=== PATIENT | female | born 1965 | race Two or more races ===

== ENCOUNTER 2016-09-04 19:17 | Emergency (ER) | payer MEDICAID, OTHER ==
[~2016-09-04] VITALS: Ht 157.5 cm; Wt 54.4 kg
[~2016-09-04 19:17] MED LIST: CARI-277 PO; NOR7.5T OR; SULF1TAB60 PO; TRAM50TA2 PO
[2016-09-04 20:11] LABS: Urine RBC None Seen /hpf (0 - 4)
[2016-09-04 20:23] LABS: Urine Bilirubin Negative (Negative); Urine Blood Negative /uL (Negative); Urine Color Yellow (Yellow); Urine Glucose Normal (Normal); Urine Ketone Negative (Negative); Urine Nitrite Negative (Negative); Urine Squamous Epithelial Cell MOD /hpf (<5); Urine pH 7.5 (5.0-8.0)
[2016-09-04 20:39] LABS: Basophils # (auto) 0 uL; Basophils % (auto) 0.5 % (0.0-2.0); Eosinophils # (auto) 0.3 uL; Eosinophils % (auto) 3.7 % (0.0-7.0); Hematocrit 40.6 % (36.0-46.0); Hemoglobin 14.2 g/dL (12.2-16.2); Lymphocytes # (auto) 1.7 uL; Mean Corpuscular Hemoglobin 32.8 pg (28.0-32.0); Mean Corpuscular Hgb Conc. 34.8 g/dL (32.0-36.0); Mean Platelet Volume 7.6 fL (7.4-10.4); Monocytes # (auto) 0.7 uL; Monocytes % (auto) 10.7 % (0.0-12.0); Neutrophils # (auto) 4.2 uL; Neutrophils % (auto) 61.1 % (37.0-80.0); Platelet Count (auto) 352 10^3/uL (140-450); Red Cell Distribution Width 13.3 % (11.6-16.0); White Blood Cell 6.9 10^3/uL (4.4-10.8)
[2016-09-04 20:51] LABS: INR 0.94 (0.9-1.15); Prothrombin Time 10.1 sec (9.37-12.3)
[2016-09-04 21:04] LABS: Albumin 3.5 g/dL (3.4-5.0); BUN/Creatinine Ratio 16.7; Bilirubin, Total 0.7 mg/dL (0.2-1.0); Calcium 8.9 mg/dL (8.5-10.1); Potassium 3.1 mmol/L (3.5-5.1); Total Protein 7.7 g/dL (6.4-8.2)
[2016-09-05 00:05] VITALS: BP 143/76
[2016-09-05] MEDS ORDERED: guaiFENesin-COD 10 ML UD PO ONE (01:15)
[2016-09-05] MEDS ORDERED: POTASSIUM CHL 20 Meq TABLET PO ONE (01:15)
== END 2016-09-05 01:21 | disposition home or self-care (01) ==
LOC: ER 19:17
DX: J04.0 Acute laryngitis (principal); M32.9 Systemic lupus erythematosus, unspecified
CPT/HCPCS: 36415; 71020; 80053; 81001; 81025; 85025; 85610; 85730

== ENCOUNTER 2019-03-25 06:52 | Inpatient (IN) | payer MEDICAID ==
[~2019-03-25] VITALS: Ht 157.5 cm; Wt 56.6 kg
[2019-03-25 07:56] LABS: Basophils # (auto) 0.1 uL; Eosinophils # (auto) 0 uL; Eosinophils % (auto) 0.3 % (0.0-7.0); Hematocrit 36.2 % (36.0-46.0); Hemoglobin 12.7 g/dL (12.2-16.2); Lymphocytes # (auto) 0.7 uL; Lymphocytes % (auto) 9.3 % (10.0-50.0); Mean Corpuscular Hemoglobin 33.6 pg (28.0-32.0); Mean Corpuscular Hgb Conc. 34.9 g/dL (32.0-36.0); Mean Corpuscular Volume 96.1 fL (80.0-100.0); Monocytes # (auto) 0.7 uL; Monocytes % (auto) 9.5 % (0.0-12.0); Neutrophils # (auto) 5.8 uL; Neutrophils % (auto) 79.9 % (37.0-80.0); Nucleated Red Blood Cells % 0.1 %; Platelet Count (auto) 138 10^3/uL (140-450); Red Blood Cells 3.77 10^6/uL (4.0-5.20); Red Cell Distribution Width 14.6 % (11.8-14.3); White Blood Cell 7.3 10^3/uL (4.4-10.8)
[2019-03-25] MEDS ORDERED: SODIUM CHLORIDE 0.9% 1,000 ML IV ONE ×3 (07:58→14:15)
[2019-03-25] MEDS ORDERED: chlordiazePOXIDE HCL 5 MG CAP PO ONE (08:00)
[2019-03-25] MEDS ORDERED: THIAMINE 100mg/ml INJ (200mg/2ml VIAL) IV ONE ×2 (08:00→10:15)
[2019-03-25] MEDS ORDERED: PANTOPRAZOLE 80 MG in SODIUM CHL 0.9% 60 ML IV ONE (08:00)
[2019-03-25] MEDS ORDERED: ONDANSETRON HCL 4 MG/2 ML VIAL IV ONE (08:00)
[2019-03-25 08:07] LABS: INR 1.14 (0.9-1.15); Partial Thromboplastin Time 30.3 sec (23.64-32.05)
[2019-03-25 08:11] LABS: Albumin 2.6 g/dL (3.4-5.0); Calcium 7.7 mg/dL (8.5-10.1); Potassium 3.9 mmol/L (3.5-5.1)
[2019-03-25 08:14] LABS: Bilirubin, Total 2.1 mg/dL (0.2-1.0); Total Protein 8.6 g/dL (6.4-8.2)
[2019-03-25 08:30] LABS: Blood Alcohol < 3.0 mg/dL (0-5)
[2019-03-25 09:06] LABS: Urine Bacteria FEW /hpf (None Seen); Urine Blood Negative /uL (Negative); Urine Mucus FEW (None Seen); Urine Specific Gravity 1.026 (1.001-1.035); Urine WBC 33 /hpf (0 - 5)
[2019-03-25] MEDS ORDERED: MORPHINE SULF INJ 2 MG/ML SYRINGE 1ML IV PRN (10:15)
[2019-03-25] MEDS ORDERED: PROMETHAZINE HCL 25 MG/ML 1ML IV PRN (10:15)
[2019-03-25] MEDS ORDERED: cefTRIAXone 1GM/50ML D5W 50 ML IV ONE (10:15)
[2019-03-25] MEDS ORDERED: LORazepam 2MG/ML-1ML VIAL IV PRN (10:15)
[2019-03-25] MEDS ORDERED: NITROGLYCERIN 0.4 MG SL TAB SL PRN (10:15)
[2019-03-25] MEDS ORDERED: METOCLOPRAMIDE HCL 5MG/ml INJ 2ml VIAL IV ONE (11:00)
[2019-03-25] MEDS ORDERED: OCTREOTIDE ACETATE 100 MCG in SODIUM CHL 0.9% 50 ML IV ONE (11:00)
[2019-03-25] MEDS ORDERED: OCTREOTIDE ACETATE 500 MCG in SODIUM CHL 0.9% 99 ML IV SCH (11:00)
[2019-03-25 11:18] LABS: Amylase 36 U/L (25-115); Lipase 61 U/L (73-393)
[2019-03-25] MEDS ORDERED: phytonadione 10 MG in SODIUM CHL 0.9% 50 ML IV ONE (11:45)
[2019-03-25] MEDS: MORPHINE SULF INJ 2 MG/ML SYRINGE 1ML IV PRN (12:00)
[2019-03-25] MEDS: SODIUM CHLORIDE 0.9% 1,000 ML IV SCH ×2 (12:00→18:29)
[2019-03-25] MEDS ORDERED: LIDOCAINE VISCOUS 2% 15ML UD ONE (12:48)
[2019-03-25] MEDS ORDERED: SODIUM CHLORIDE LOCK 10 ML ONE (12:48)
[2019-03-25] MEDS ORDERED: diphenhdrAMINE HCL 50 MG/1 ML VL ONE (12:49)
[2019-03-25] MEDS ORDERED: fentaNYL CITRATE 100 MCG/2 ML VL ONE (12:50)
[2019-03-25] MEDS ORDERED: MIDAZOLAM HCL 5 MG/ML-1ML VIAL ONE (12:51)
[2019-03-25] MEDS: fentaNYL CITRATE 100 MCG/2 ML VL ONE ×2 (13:04→13:09)
[2019-03-25] MEDS: MIDAZOLAM HCL 5 MG/ML-1ML VIAL ONE ×2 (13:04→13:09)
[2019-03-25 13:06] LABS: Hematocrit 33.9 % (36.0-46.0); Hemoglobin 11.9 g/dL (12.2-16.2)
[2019-03-25] MEDS ORDERED: NOREPINEPHRINE 8 MG/250ML KIT 250 ML IV PRN (14:15)
[2019-03-25] MEDS: metroNIDAZOLE 500MG/100ML 100 ML IV SCH ×2 (14:19→22:04)
[2019-03-25 18:15] LABS: Hematocrit 32.6 % (36.0-46.0); Hemoglobin 11.2 g/dL (12.2-16.2)
[2019-03-25] MEDS ORDERED: ACETAMINOPHEN 325 MG TAB PO PRN (21:30)
[2019-03-25] MEDS ORDERED: PANTOPRAZOLE 40 MG/10 ML VIAL INJ IV SCH (22:00)
[2019-03-26 01:43] LABS: Hematocrit 28.3 % (36.0-46.0); Hemoglobin 9.9 g/dL (12.2-16.2)
[2019-03-26] MEDS: SODIUM CHLORIDE 0.9% 1,000 ML IV SCH ×3 (02:43→18:13)
[2019-03-26] MEDS: metroNIDAZOLE 500MG/100ML 100 ML IV SCH ×3 (06:19→22:26)
[2019-03-26 06:56] LABS: Basophils # (auto) 0 uL; Basophils % (auto) 0.6 % (0.0-2.0); Eosinophils # (auto) 0.1 uL; Hemoglobin 9.6 g/dL (12.2-16.2); Lymphocytes # (auto) 1.2 uL; Monocytes # (auto) 0.4 uL; Neutrophils # (auto) 1.9 uL; White Blood Cell 3.6 10^3/uL (4.4-10.8)
[2019-03-26 06:58] LABS: Eosinophils % (auto) 2.3 % (0.0-7.0); Hematocrit 26.8 % (36.0-46.0); Mean Corpuscular Hemoglobin 34.4 pg (28.0-32.0); Mean Corpuscular Hgb Conc. 35.7 g/dL (32.0-36.0); Mean Corpuscular Volume 96.4 fL (80.0-100.0); Monocytes % (auto) 11.8 % (0.0-12.0); Neutrophils % (auto) 52.3 % (37.0-80.0); Nucleated Red Blood Cells % 0.3 %; Platelet Count (auto) 97 10^3/uL (140-450); Red Blood Cells 2.78 10^6/uL (4.0-5.20); Red Cell Distribution Width 14.6 % (11.8-14.3)
[2019-03-26 07:25] LABS: Calcium 6.9 mg/dL (8.5-10.1); Potassium 3.5 mmol/L (3.5-5.1)
[2019-03-26 07:28] LABS: BUN/Creatinine Ratio 19.6; Bilirubin, Total 1.3 mg/dL (0.2-1.0); Total Protein 6.4 g/dL (6.4-8.2)
[2019-03-26] MEDS: cefTRIAXone 1GM/50ML D5W 50 ML IV SCH (09:11)
[2019-03-26] MEDS: THIAMINE 100mg/ml INJ (200mg/2ml VIAL) IV SCH (10:19)
[2019-03-26 11:30] VITALS: BP 108/65
--- NOTE | 2019-03-26 11:30 | NUR ---
Admit to [facility] admitted to [facility] via gurney on library monitor. Patient transferred to bed, [facility] Patient oriented to Suri merritt RN, unit, room, bed, and unit policies regarding patient care and visiting hours. All questions and concerns addressed, patient verbalized understanding. Patient awake and alert, no S/S of SOB/pain. Oxygen saturation 98% at room air. See interventions for complete assessment. Bed locked on low position, side rails up x2, bed alarms on at all times, call pizarro within reach, instructed to call for needed assistance.
[2019-03-26 12:00] VITALS: BP 114/62
[2019-03-26] MEDS: MORPHINE SULF INJ 2 MG/ML SYRINGE 1ML IV PRN ×2 (13:38→19:54)
--- NOTE | 2019-03-26 14:11 | NUR ---
Patient denies taking any medications at home. Patient refused to set up password for her medical information.
--- NOTE | 2019-03-26 14:15 | NUR ---
Dr Meadows at bedside, updated on patient's status. Patient seen and examined. Will carry out new orders.
[2019-03-26 16:00] VITALS: BP 118/65
[2019-03-26 20:00] VITALS: BP 117/65
[2019-03-26] MEDS: PANTOPRAZOLE 40 MG TAB PO SCH (22:26)
[2019-03-27] VITALS: BP 123/58
[2019-03-27] MEDS: SODIUM CHLORIDE 0.9% 1,000 ML IV SCH ×3 (03:35→12:32)
[2019-03-27] MEDS: MORPHINE SULF INJ 2 MG/ML SYRINGE 1ML IV PRN ×2 (03:37→09:27)
[2019-03-27 04:00] VITALS: BP 119/62
[2019-03-27] MEDS: metroNIDAZOLE 500MG/100ML 100 ML IV SCH (06:44)
--- NOTE | 2019-03-27 07:35 | NUR ---
SHIFT OPENING NOTE PATIENT AOX4, SELF TURN, MOVING ALL EXTREMITIES. REPORTS NO PAIN OR BLEEDING AT THIS TIME. ABDOMEN, ROUND, SOFT, AND NONTENDER, PLAN OF CARE DISCUSSED WITH PATIENT WITH ALL QUESTIONS AND CONCERNS ADDRESSED AT THIS TIME
[2019-03-27 08:00] VITALS: BP 126/60
[2019-03-27] MEDS ORDERED: POTASSIUM CHL 20MEQ/100ML 100 ML IV SCH (08:15)
[2019-03-27] MEDS: THIAMINE 100mg/ml INJ (200mg/2ml VIAL) IV SCH (09:27)
[2019-03-27] MEDS: PANTOPRAZOLE 40 MG TAB PO SCH (09:27)
[2019-03-27] MEDS: cefTRIAXone 1GM/50ML D5W 50 ML IV SCH (09:27)
--- NOTE | 2019-03-27 10:00 | NUR ---
PATIENT OUT OF BED STABLE ON FEET, AMBULATED TO RESTROOM
--- NOTE | 2019-03-27 10:46 | NUR ---
DR. AGEE AT BEDSIDE
--- NOTE | 2019-03-27 11:01 | NUR ---
FOLLOW UP [facility] PER PATIENT SHE WILL FOLLOW UP AT [facility] AFTER DISCHARGE
[2019-03-27 12:10] VITALS: BP 131/75
[2019-03-27 12:52] VITALS: BP 131/75
--- NOTE | 2019-03-27 14:13 | NUR ---
PATIENT DISCHARGED IV'S REMOVED WITH CATHETER INTACT, PRESSURE DRESSING APPLIED. PATIENT DISCHARGED WITH ALL BELONGINGS. ALL QUESTIONS AND CONCERNS ADDRESSED UPON DISCHARGE
== END 2019-03-27 14:10 | disposition home or self-care (01) | DRG 243 ==
LOC: ER 06:52 → OVERFLOW 06:53 → DOU IN ICU 11:12 → UNDODISIN 03-27 14:10
PROVIDERS: ADMIT Internal Medicine; ATTEND Internal Medicine
PROC: 0DJ08ZZ Inspection of Upper Intestinal Tract, Via Natural or Artificial Opening Endoscopic (ICD-10-PCS; principal; 2019-03-25 14:15)
DX: K20.9 Esophagitis, unspecified (principal); K76.6 Portal hypertension; K70.30 Alcoholic cirrhosis of liver without ascites; K70.9 Alcoholic liver disease, unspecified; B19.20 Unspecified viral hepatitis C without hepatic coma; N39.0 Urinary tract infection, site not specified; K31.89 Other diseases of stomach and duodenum; K22.8 Other specified diseases of esophagus; F10.10 Alcohol abuse, uncomplicated; Y90.9 Presence of alcohol in blood, level not specified; F12.90 Cannabis use, unspecified, uncomplicated; F15.90 Other stimulant use, unspecified, uncomplicated; I10 Essential (primary) hypertension; Z79.899 Other long term (current) drug therapy; Z80.3 Family history of malignant neoplasm of breast; Z82.49 Family history of ischemic heart disease and other diseases of the circulatory system; Z83.3 Family history of diabetes mellitus
CPT/HCPCS: 36415; 43235; 71045; 71046; 74176; 80053; 80320; 81001; 81025; 82150; 83690; 84484; 85014; 85018; 85025; 85610; 85730; 86850; 86900; 86901; 87081; 87086; 96365; 96375; 99291; C9113; G0378; J0696; J2250; J2405; J3430; J3490

== ENCOUNTER → 2019-11-13 | Emergency (ER) | payer MEDICAID ==
[~2019-11-13] VITALS: Ht 157.5 cm; Wt 49.9 kg
[2019-11-13 20:56] VITALS: BP 151/84
[2019-11-13 22:44] LABS: Basophils # (auto) 0.1 10 ^3/uL (0-0.2); Basophils % (auto) 1.3 % (0.0-2.0); Eosinophils # (auto) 0.1 10 ^3/uL (0-0.8); Eosinophils % (auto) 2.3 % (0.0-7.0); Hemoglobin 13.3 g/dL (12.2-16.2); Lymphocytes # (auto) 1.2 10 ^3/uL (0.4-5.4); Lymphocytes % (auto) 27.8 % (10.0-50.0); Mean Corpuscular Hemoglobin 27.6 pg (28.0-32.0); Mean Corpuscular Hgb Conc. 33.3 g/dL (32.0-36.0); Mean Corpuscular Volume 82.9 fL (80.0-100.0); Monocytes # (auto) 0.4 10 ^3/uL (0-1.3); Monocytes % (auto) 8.5 % (0.0-12.0); Neutrophils # (auto) 2.6 10 ^3/uL (1.6-8.6); Neutrophils % (auto) 60.1 % (37.0-80.0); Nucleated Red Blood Cells % 0.6 %; Platelet Count (auto) 80 10^3/uL (140-450); Red Blood Cells 4.83 10^6/uL (4.0-5.20); White Blood Cell 4.4 10^3/uL (4.4-10.8)
[2019-11-13 22:46] LABS: Urine Bacteria FEW /hpf (None Seen); Urine Blood Negative /uL (Negative); Urine Mucus FEW (None Seen); Urine Specific Gravity 1.012 (1.001-1.035); Urine WBC 31 /hpf (0 - 5); Urine WBC Clumps PRESENT /hpf (None Seen)
[2019-11-13 22:47] LABS: Amphetamine Screen, Urine NEGATIVE (NEGATIVE); Barbiturate Scree,Urine NEGATIVE (NEGATIVE); Benzodiazephine Screen, Urine NEGATIVE (NEGATIVE); Cannabinoid Screen, Urine NEGATIVE (NEGATIVE); Cocaine Screen, Urine NEGATIVE (NEGATIVE); Opiate Scree,Urine NEGATIVE (NEGATIVE); Phencyclidine Screen, Urine NEGATIVE (NEGATIVE)
[2019-11-13 23:00] LABS: INR 1.23 (0.9-1.15); Partial Thromboplastin Time 29.5 sec (23.64-32.05)
[2019-11-13 23:04] LABS: Albumin 3.1 g/dL (3.4-5.0); Amylase 80 U/L (25-115); Anion Gap 6 (5-15); BUN/Creatinine Ratio 14.8; Blood Urea Nitrogen 8 mg/dL (7-18); Calcium 8.1 mg/dL (8.5-10.1); Carbon Dioxide 26 mmol/L (21-32); Chloride 111 mmol/L (98-107); GFR African American 152 mL/min; GFR Non-African American 126 mL/min; Glucose 101 mg/dL (74-106); Lipase 204 U/L (73-393); Magnesium 2.3 mg/dL (1.6-2.6); Potassium 3.5 mmol/L (3.5-5.1); Sodium 143 mmol/L (136-145)
[2019-11-13 23:06] LABS: Alanine Aminotransferase 81 U/L (13-56); Alkaline Phosphatase 146 U/L (45-117); Aspartate Aminotransferase 199 U/L (15-37); Bilirubin, Total 1.4 mg/dL (0.2-1.0); Total Protein 8.9 g/dL (6.4-8.2)
== END | disposition home or self-care (01) ==
LOC: ER 20:49
DX: R10.9 Unspecified abdominal pain (principal); Z53.21 Procedure and treatment not carried out due to patient leaving prior to being seen by health care provider
CPT/HCPCS: 36415; 71046; 74176; 80053; 80307; 80320; 81001; 82140; 82150; 83690; 83735; 84484; 85025; 85610; 85730

== ENCOUNTER 2021-11-09 12:07 | Emergency (ER) | payer MEDICAID ==
[~2021-11-09] VITALS: Ht 157.5 cm; Wt 59.0 kg
[2021-11-09 13:28] LABS: Albumin 2.7 g/dL (3.4-5.0); Potassium 3.6 mmol/L (3.5-5.1)
[2021-11-09 13:31] LABS: BUN/Creatinine Ratio 35.1; Bilirubin, Total 1.5 mg/dL (0.2-1.0); Total Protein 7.6 g/dL (6.4-8.2)
[2021-11-09 13:41] LABS: Basophils # (auto) 0 10 ^3/uL (0-0.2); Basophils % (auto) 0.6 % (0.0-2.0); Eosinophils # (auto) 0.2 10 ^3/uL (0-0.8); Hematocrit 34.7 % (36.0-46.0); Hemoglobin 11.2 g/dL (12.2-16.2); Lymphocytes # (auto) 0.7 10 ^3/uL (0.4-5.4); Lymphocytes % (auto) 30.3 % (10.0-50.0); Mean Corpuscular Hemoglobin 27.8 pg (28.0-32.0); Mean Corpuscular Hgb Conc. 32.3 g/dL (32.0-36.0); Mean Corpuscular Volume 85.9 fL (80.0-100.0); Monocytes # (auto) 0.3 10 ^3/uL (0-1.3); Monocytes % (auto) 11.9 % (0.0-12.0); Neutrophils # (auto) 1.1 10 ^3/uL (1.6-8.6); Neutrophils % (auto) 50.2 % (37.0-80.0); Nucleated Red Blood Cells % 0.6 %; Red Blood Cells 4.04 10^6/uL (4.0-5.20); Red Cell Distribution Width 15.6 % (11.8-14.3); White Blood Cell 2.2 10^3/uL (4.4-10.8)
[2021-11-09 14:11] VITALS: BP 147/61
[2021-11-09 16:07] LABS: Urine Bacteria FEW /hpf (None Seen); Urine Blood Negative /uL (Negative); Urine Mucus FEW (None Seen); Urine Specific Gravity 1.017 (1.001-1.035); Urine WBC 3 /hpf (0 - 5)
[2021-11-09] MEDS ORDERED: HYDROcodone-ACET 5/325MG TAB PO ONE (16:30)
[2021-11-09] MEDS ORDERED: ONDANSETRON HCL 4 MG/2 ML VIAL IV ONE ×2 (16:30→19:15)
[2021-11-09] MEDS ORDERED: METOCLOPRAMIDE HCL 5MG/ml INJ 2ml VIAL IV ONE (18:45)
[2021-11-09] MEDS ORDERED: LACTATED RINGER'S 1,000 ML IV ONE (19:15)
[2021-11-09] MEDS ORDERED: chlordiazePOXIDE HCL 5 MG CAP PO ONE (19:15)
[2021-11-09] MEDS ORDERED: LORazepam 2MG/ML-1ML VIAL IV ONE (19:15)
[2021-11-09] MEDS ORDERED: ONDA-144 PO (19:23)
== END 2021-11-09 19:22 | disposition left against medical advice (07) ==
LOC: ER 12:07
DX: E86.0 Dehydration (principal); N18.9 Chronic kidney disease, unspecified; Z79.899 Other long term (current) drug therapy
CPT/HCPCS: 36415; 74176; 80053; 81001; 81025; 82140; 84484; 84702; 85025; 93005; 96374; 99285; J2405

== ENCOUNTER 2021-12-16 07:46 | Emergency (ER) | payer MEDICAID ==
[~2021-12-16] VITALS: Ht 167.6 cm; Wt 63.0 kg
[~2021-12-16 07:46] MED LIST changes: +ONDA-144 PO
[2021-12-16 10:13] LABS: Albumin 2.4 g/dL (3.4-5.0); Calcium 7.5 mg/dL (8.5-10.1)
[2021-12-16 10:14] LABS: Hemoglobin 12.1 g/dL (12.2-16.2); White Blood Cell 3.1 10^3/uL (4.4-10.8)
[2021-12-16 10:16] LABS: BUN/Creatinine Ratio 22.2; Bilirubin, Total 2.1 mg/dL (0.2-1.0); Mean Corpuscular Hgb Conc. 32.8 g/dL (32.0-36.0); Mean Corpuscular Volume 82.2 fL (80.0-100.0); Red Cell Distribution Width 18.2 % (11.8-14.3); Total Protein 7.2 g/dL (6.4-8.2)
[2021-12-16 10:18] LABS: Basophils % (manual) 0 (0.0-2.0); Blast Cells 0; Eosinophils % (manual) 0 (0-7); Metamyelocytes % 0; Myelocytes % 0; Promyelocytes % 0; Reactive Lymphocytes 0
[2021-12-16 10:19] LABS: Potassium 2.9 mmol/L (3.5-5.1)
[2021-12-16] MEDS ORDERED: POTASSIUM EFFERVESENT TAB 25 MEQ PO ONE (10:30)
[2021-12-16] MEDS ORDERED: SODIUM CHLORIDE 0.9% 1,000 ML IV ONE (10:30)
[2021-12-16] MEDS ORDERED: ONDANSETRON HCL 4 MG/2 ML VIAL ONE (10:43)
[2021-12-16] MEDS ORDERED: THIAMINE 100mg/ml INJ (200mg/2ml VIAL) IV ONE (11:00)
[2021-12-16] MEDS ORDERED: ONDANSETRON HCL 4 MG/2 ML VIAL IV ONE (11:00)
[2021-12-16 11:39] LABS: Urine Bacteria FEW /hpf (None Seen); Urine Blood 2+ /uL (Negative); Urine Specific Gravity 1.013 (1.001-1.035); Urine WBC 273 /hpf (0 - 5)
[2021-12-16] MEDS ORDERED: NITR-87 PO (11:54)
[2021-12-16 12:16] VITALS: BP 133/64
[2021-12-16 13:13] LABS: Band Neutrophils % (manual) 9; Lymphocytes % (manual) 7 (10.0-50.0); Monocytes % (manual) 16 (0-12)
== END 2021-12-16 12:54 | disposition home or self-care (01) ==
LOC: ER 07:46 → EDBD 07:46 → ER 12:54
DX: R55 Syncope and collapse (principal); N39.0 Urinary tract infection, site not specified; K70.9 Alcoholic liver disease, unspecified; E43 Unspecified severe protein-calorie malnutrition; N18.9 Chronic kidney disease, unspecified; Z68.22 Body mass index [BMI] 22.0-22.9, adult
CPT/HCPCS: 36415; 70450; 72125; 80053; 81001; 85007; 85027; 93005; 96361; 96374; 96375; 99285; J2405; J3411; J7030

== ENCOUNTER 2022-01-22 14:36 | Emergency (ER) | payer MEDICAID ==
[~2022-01-22] VITALS: Ht 157.5 cm; Wt 54.0 kg
[~2022-01-22 14:36] MED LIST changes: +NITR-87 PO
[2022-01-22 15:43] LABS: Urine Bacteria FEW /hpf (None Seen); Urine Blood Negative /uL (Negative); Urine Mucus FEW (None Seen); Urine Specific Gravity 1.022 (1.001-1.035); Urine WBC 17 /hpf (0 - 5)
[2022-01-22 15:45] LABS: Basophils # (auto) 0 10 ^3/uL (0-0.2); Basophils % (auto) 0.6 % (0.0-2.0); Eosinophils # (auto) 0.1 10 ^3/uL (0-0.8); Eosinophils % (auto) 3.3 % (0.0-7.0); Hematocrit 39.1 % (36.0-46.0); Hemoglobin 12.8 g/dL (12.2-16.2); Lymphocytes # (auto) 0.6 10 ^3/uL (0.4-5.4); Lymphocytes % (auto) 19.6 % (10.0-50.0); Mean Corpuscular Hemoglobin 28.4 pg (28.0-32.0); Mean Corpuscular Hgb Conc. 32.8 g/dL (32.0-36.0); Mean Corpuscular Volume 86.4 fL (80.0-100.0); Monocytes # (auto) 0.4 10 ^3/uL (0-1.3); Monocytes % (auto) 11.7 % (0.0-12.0); Neutrophils % (auto) 64.8 % (37.0-80.0); Nucleated Red Blood Cells % 0.3 %; Red Blood Cells 4.52 10^6/uL (4.0-5.20); Red Cell Distribution Width 19.9 % (11.8-14.3)
[2022-01-22 15:57] LABS: Albumin 3.3 g/dL (3.4-5.0); BUN/Creatinine Ratio 32.6; Calcium 8.6 mg/dL (8.5-10.1); Potassium 3.7 mmol/L (3.5-5.1)
[2022-01-22 16:00] LABS: Bilirubin, Total 2.6 mg/dL (0.2-1.0)
[2022-01-22] MEDS ORDERED: cefTRIAXone 1GM/50ML D5W 50 ML IV ONE (17:00)
[2022-01-22] MEDS ORDERED: THIA100T10 PO (17:41)
[2022-01-22] MEDS ORDERED: CIPR-173 PO (17:41)
[2022-01-22] MEDS ORDERED: FOLITAB22 PO (17:41)
[2022-01-22] MEDS ORDERED: PANT1INJ3 IV (17:41)
[2022-01-22] MEDS ORDERED: METO-281 PO (17:41)
[2022-01-22 19:56] VITALS: BP 136/90
== END 2022-01-22 20:29 | disposition home or self-care (01) ==
LOC: ER 14:36
DX: K29.20 Alcoholic gastritis without bleeding (principal); N39.0 Urinary tract infection, site not specified; E46 Unspecified protein-calorie malnutrition; N18.9 Chronic kidney disease, unspecified; Z68.21 Body mass index [BMI] 21.0-21.9, adult; Z79.2 Long term (current) use of antibiotics; Z79.899 Other long term (current) drug therapy
CPT/HCPCS: 36415; 80053; 81001; 85025; 96365; 99284; J0696

== ENCOUNTER 2022-03-25 07:39 | Emergency (ER) | payer MEDICAID ==
[~2022-03-25] VITALS: Ht 157.5 cm; Wt 56.2 kg
[~2022-03-25 07:39] MED LIST changes: +CIPR-173 PO; +FOLITAB22 PO; +METO-281 PO; +PANT1INJ3 IV; +THIA100T10 PO
[2022-03-25 08:12] VITALS: BP 173/88
[2022-03-25 08:51] LABS: Basophils # (auto) 0 10 ^3/uL (0-0.2); Eosinophils # (auto) 0 10 ^3/uL (0-0.8); Lymphocytes # (auto) 0.3 10 ^3/uL (0.4-5.4); Lymphocytes % (auto) 11.3 % (10.0-50.0); Mean Corpuscular Volume 88.2 fL (80.0-100.0); Monocytes # (auto) 0.2 10 ^3/uL (0-1.3); White Blood Cell 2.5 10^3/uL (4.4-10.8)
[2022-03-25 08:53] LABS: Basophils % (auto) 0.5 % (0.0-2.0); Hematocrit 38.2 % (36.0-46.0); Hemoglobin 13.1 g/dL (12.2-16.2); Mean Corpuscular Hemoglobin 30.4 pg (28.0-32.0); Mean Corpuscular Hgb Conc. 34.4 g/dL (32.0-36.0); Monocytes % (auto) 8.4 % (0.0-12.0); Neutrophils # (auto) 1.9 10 ^3/uL (1.6-8.6); Neutrophils % (auto) 78.8 % (37.0-80.0); Nucleated Red Blood Cells % 0.3 %; Red Blood Cells 4.33 10^6/uL (4.0-5.20); Red Cell Distribution Width 15.3 % (11.8-14.3)
[2022-03-25] MEDS ORDERED: LACTATED RINGER'S 1,000 ML IV ONE (09:00)
[2022-03-25] MEDS ORDERED: LIDOCAINE VISCOUS 2% 15ML UD PO ONE (09:00)
[2022-03-25] MEDS ORDERED: FAMOTIDINE (10MG/ML) 2ML VL IV ONE (09:00)
[2022-03-25] MEDS ORDERED: ALUM & MAG HYDROX-SIMETH LIQ(MAALOX) 30 ML PO ONE (09:00)
[2022-03-25] MEDS ORDERED: ONDANSETRON HCL 4 MG/2 ML VIAL IV ONE (09:00)
[2022-03-25 09:05] LABS: Albumin 3.2 g/dL (3.4-5.0); BUN/Creatinine Ratio 36.6; Calcium 8.4 mg/dL (8.5-10.1); Potassium 3.7 mmol/L (3.5-5.1); Total Protein 7.9 g/dL (6.4-8.2)
[2022-03-25 09:24] LABS: Urine Bacteria FEW /hpf (None Seen); Urine Blood Negative /uL (Negative); Urine Mucus FEW (None Seen); Urine Specific Gravity 1.017 (1.001-1.035); Urine WBC 3 /hpf (0 - 5)
== END 2022-03-25 17:11 | disposition home or self-care (01) ==
LOC: ER 07:39
DX: K29.20 Alcoholic gastritis without bleeding (principal); N18.9 Chronic kidney disease, unspecified; Z90.49 Acquired absence of other specified parts of digestive tract; Z79.899 Other long term (current) drug therapy; Z79.2 Long term (current) use of antibiotics
CPT/HCPCS: 36415; 80053; 81001; 85025; 96361; 96374; 96375; 99284; J2405; J3490; J7030

== ENCOUNTER 2022-03-27 16:50 | Emergency (ER) | payer MEDICAID ==
[~2022-03-27] VITALS: Ht 157.5 cm; Wt 63.0 kg
[2022-03-27 17:12] VITALS: BP 129/78
[2022-03-27] MEDS ORDERED: ONDANSETRON ODT 4 MG TAB PO ONE (17:15)
[2022-03-27] MEDS ORDERED: SODIUM CHLORIDE 0.9% 1,000 ML IV ONE (17:15)
== END 2022-03-27 21:56 | disposition left against medical advice (07) ==
LOC: ER 16:50 → EDBD 16:50 → ER 21:56
DX: R10.9 Unspecified abdominal pain (principal); R10.10 Upper abdominal pain, unspecified; Z53.21 Procedure and treatment not carried out due to patient leaving prior to being seen by health care provider

== ENCOUNTER 2022-05-21 23:03 | Inpatient (IN) | payer MEDICAID ==
[~2022-05-21] VITALS: Ht 157.5 cm; Wt 62.7 kg
[2022-05-21 23:29] VITALS: BP 138/68
[2022-05-22 00:28] LABS: Basophils # (auto) 0 10 ^3/uL (0-0.2); Eosinophils # (auto) 0.1 10 ^3/uL (0-0.8); Hemoglobin 13.5 g/dL (12.2-16.2); Monocytes # (auto) 0.3 10 ^3/uL (0-1.3); Neutrophils # (auto) 1.4 10 ^3/uL (1.6-8.6); Neutrophils % (auto) 50.1 % (37.0-80.0); Red Cell Distribution Width 16.4 % (11.8-14.3)
[2022-05-22 00:31] LABS: Basophils % (auto) 0.5 % (0.0-2.0); Eosinophils % (auto) 2.8 % (0.0-7.0); Hematocrit 39.8 % (36.0-46.0); Lymphocytes % (auto) 37.2 % (10.0-50.0); Mean Corpuscular Hemoglobin 29.8 pg (28.0-32.0); Mean Corpuscular Volume 87.7 fL (80.0-100.0); Monocytes % (auto) 9.4 % (0.0-12.0); Nucleated Red Blood Cells % 0.4 %; Red Blood Cells 4.54 10^6/uL (4.0-5.20); White Blood Cell 2.7 10^3/uL (4.4-10.8)
[2022-05-22 00:42] LABS: INR 1.4 (0.9-1.15)
[2022-05-22 00:46] LABS: Albumin 2.7 g/dL (3.4-5.0); Potassium 3.4 mmol/L (3.5-5.1)
[2022-05-22 00:48] LABS: BUN/Creatinine Ratio 21.1
[2022-05-22 00:51] LABS: Bilirubin, Total 3.5 mg/dL (0.2-1.0); Total Protein 7.5 g/dL (6.4-8.2)
[2022-05-22] MEDS ORDERED: LORazepam 0.5 MG TAB PO PRN (06:00)
[2022-05-22] MEDS ORDERED: DOCUSATE SOD 100 MG CAP PO PRN (06:00)
[2022-05-22] MEDS ORDERED: TEMAZEPAM 15 MG CAP PO PRN (06:00)
[2022-05-22] MEDS ORDERED: LACTULOSE 20Gm/30ML SOLN PO SCH (06:00)
[2022-05-22] MEDS ORDERED: ACETAMINOPHEN 325 MG TAB PO PRN (06:00)
[2022-05-22] MEDS ORDERED: HYDROcodone-ACET 5/325MG TAB PO PRN (06:00)
[2022-05-22] MEDS ORDERED: MAALOX PLUS or MAALOX 30 ML PO PRN (06:00)
[2022-05-22] MEDS ORDERED: MORPHINE SULFATE INJ 2 MG/ml SYRG IV PRN (06:00)
[2022-05-22] MEDS ORDERED: SODIUM CHLORIDE 0.9% 1,000 ML IV SCH (06:00)
[2022-05-22] MEDS ORDERED: ONDANSETRON HCL 4 MG/2 ML VIAL IV PRN (06:00)
[2022-05-22] MEDS ORDERED: HYDROmorphone HCL 2 MG/ML VL/or syr IV PRN (06:00)
[2022-05-22] MEDS ORDERED: cefTRIAXone 1GM/50ML D5W 50 ML IV SCH (07:00)
== END 2022-05-22 08:54 | disposition left against medical advice (07) ==
LOC: ER 23:03 → OVERFLOW 05-22 05:56
PROVIDERS: ADMIT Hospitalist; ATTEND Student in an Organized Health Care Education/Training Program
DX: K76.82 Hepatic encephalopathy (principal); K74.60 Unspecified cirrhosis of liver; Z53.29 Procedure and treatment not carried out because of patient's decision for other reasons; Z79.899 Other long term (current) drug therapy; Z85.05 Personal history of malignant neoplasm of liver; Z90.49 Acquired absence of other specified parts of digestive tract
CPT/HCPCS: 36415; 71045; 74176; 80053; 82140; 83690; 83880; 85025; 85610; G0378

== ENCOUNTER 2022-06-02 04:30 | Emergency (ER) | payer MEDICAID ==
[~2022-06-02] VITALS: Ht 157.5 cm; Wt 59.0 kg
[2022-06-02 04:53] VITALS: BP 135/68
[2022-06-02 06:03] LABS: Basophils # (auto) 0 10 ^3/uL (0-0.2); Eosinophils # (auto) 0 10 ^3/uL (0-0.8); Eosinophils % (auto) 0.4 % (0.0-7.0); Lymphocytes # (auto) 0.8 10 ^3/uL (0.4-5.4); Lymphocytes % (auto) 21.5 % (10.0-50.0); Monocytes # (auto) 0.3 10 ^3/uL (0-1.3); Neutrophils # (auto) 2.7 10 ^3/uL (1.6-8.6); White Blood Cell 3.8 10^3/uL (4.4-10.8)
[2022-06-02 06:07] LABS: Basophils % (auto) 0.5 % (0.0-2.0); Hematocrit 42.9 % (36.0-46.0); Hemoglobin 14.7 g/dL (12.2-16.2); Mean Corpuscular Hemoglobin 30.5 pg (28.0-32.0); Mean Corpuscular Hgb Conc. 34.3 g/dL (32.0-36.0); Monocytes % (auto) 7.2 % (0.0-12.0); Neutrophils % (auto) 70.4 % (37.0-80.0); Nucleated Red Blood Cells % 0.3 %; Red Blood Cells 4.82 10^6/uL (4.0-5.20); Red Cell Distribution Width 17.9 % (11.8-14.3)
[2022-06-02 06:20] LABS: INR 1.46 (0.9-1.15); Partial Thromboplastin Time 35.6 sec (24.6-33.4)
[2022-06-02 06:22] LABS: Albumin 2.7 g/dL (3.4-5.0); BUN/Creatinine Ratio 30.6; Calcium 7.3 mg/dL (8.5-10.1); Magnesium 2.1 mg/dL (1.6-2.6); Potassium 3.7 mmol/L (3.5-5.1)
[2022-06-02 06:25] LABS: Bilirubin, Total 14.4 mg/dL (0.2-1.0); Total Protein 7.4 g/dL (6.4-8.2)
== END 2022-06-02 07:25 | disposition left against medical advice (07) ==
LOC: EDBD 04:30 → EDSEX 04:30 → ER 04:33
DX: R06.02 Shortness of breath (principal); R18.8 Other ascites; K59.00 Constipation, unspecified; R07.89 Other chest pain; Z85.05 Personal history of malignant neoplasm of liver; Z53.21 Procedure and treatment not carried out due to patient leaving prior to being seen by health care provider
CPT/HCPCS: 36415; 71045; 80053; 83735; 83880; 84484; 85025; 85610; 85730

== ENCOUNTER 2022-06-09 14:17 | Emergency (ER) | payer MEDICAID ==
[~2022-06-09] VITALS: Ht 157.5 cm; Wt 56.6 kg
[2022-06-09 14:17] VITALS: BP 136/73
[2022-06-09 15:13] LABS: Eosinophils # (auto) 0.1 10 ^3/uL (0-0.8); Lymphocytes # (auto) 0.5 10 ^3/uL (0.4-5.4); Monocytes # (auto) 0.4 10 ^3/uL (0-1.3)
[2022-06-09 15:15] LABS: Basophils # (auto) 0.1 10 ^3/uL (0-0.2); Eosinophils % (auto) 2.6 % (0.0-7.0); Hematocrit 44.2 % (36.0-46.0); Hemoglobin 15.1 g/dL (12.2-16.2); Lymphocytes % (auto) 15.7 % (10.0-50.0); Mean Corpuscular Hemoglobin 32.2 pg (28.0-32.0); Mean Corpuscular Hgb Conc. 34.2 g/dL (32.0-36.0); Mean Corpuscular Volume 94.2 fL (80.0-100.0); Monocytes % (auto) 11.3 % (0.0-12.0); Neutrophils # (auto) 2.2 10 ^3/uL (1.6-8.6); Neutrophils % (auto) 68.4 % (37.0-80.0); White Blood Cell 3.2 10^3/uL (4.4-10.8)
[2022-06-09 15:19] LABS: Red Cell Distribution Width 21.9 % (11.8-14.3)
[2022-06-09 15:30] LABS: INR 1.7 (0.9-1.15); Partial Thromboplastin Time 46.5 sec (24.6-33.4)
[2022-06-09 15:31] LABS: BUN/Creatinine Ratio 9.3; Calcium 7.2 mg/dL (8.5-10.1); Potassium 3.6 mmol/L (3.5-5.1)
[2022-06-09 15:43] LABS: Bilirubin, Total 23.3 mg/dL (0.2-1.0); Total Protein 6.7 g/dL (6.4-8.2)
[2022-06-09] MEDS ORDERED: HYDROmorphone HCL 2 MG/ML VL/or syr IV ONE (21:15)
[2022-06-09 22:04] LABS: Urine Bacteria MANY /hpf (None Seen); Urine Blood Negative /uL (Negative); Urine Mucus MANY (None Seen); Urine Specific Gravity 1.019 (1.001-1.035); Urine WBC 10 /hpf (0 - 5)
[2022-06-09 23:49] LABS: Amphetamine Screen, Urine NEGATIVE (NEGATIVE); Barbiturate Scree,Urine NEGATIVE (NEGATIVE); Benzodiazephine Screen, Urine NEGATIVE (NEGATIVE); Cannabinoid Screen, Urine NEGATIVE (NEGATIVE); Cocaine Screen, Urine NEGATIVE (NEGATIVE); Opiate Scree,Urine NEGATIVE (NEGATIVE); Phencyclidine Screen, Urine NEGATIVE (NEGATIVE)
== END 2022-06-10 00:23 | disposition left against medical advice (07) ==
LOC: ER 14:17
DX: K74.60 Unspecified cirrhosis of liver (principal); R18.8 Other ascites; J90 Pleural effusion, not elsewhere classified; N39.0 Urinary tract infection, site not specified; F10.90 Alcohol use, unspecified, uncomplicated; Z90.49 Acquired absence of other specified parts of digestive tract
CPT/HCPCS: 36415; 71045; 74176; 80053; 80307; 81001; 84484; 85025; 85610; 85730; 93005

== ENCOUNTER 2022-09-14 02:13 | Inpatient (IN) | payer OTHER ==
[~2022-09-14] VITALS: Ht 157.5 cm; Wt 57.1 kg
[2022-09-14] MEDS ORDERED: MORPHINE SULFATE 4 MG/ML SYR/VIAL IV ONE (02:45)
[2022-09-14 03:22] LABS: Nucleated Red Blood Cells % 0.1 %
[2022-09-14 03:25] LABS: Basophils # (auto) 0 10 ^3/uL (0-0.2); Basophils % (auto) 0.9 % (0.0-2.0); Eosinophils # (auto) 0.1 10 ^3/uL (0-0.8); Eosinophils % (auto) 4.5 % (0.0-7.0); Hematocrit 28.2 % (36.0-46.0); Hemoglobin 9.8 g/dL (12.2-16.2); Lymphocytes # (auto) 0.8 10 ^3/uL (0.4-5.4); Mean Corpuscular Hemoglobin 37.3 pg (28.0-32.0); Mean Corpuscular Hgb Conc. 34.9 g/dL (32.0-36.0); Monocytes # (auto) 0.3 10 ^3/uL (0-1.3); Monocytes % (auto) 11.5 % (0.0-12.0); Neutrophils # (auto) 1.3 10 ^3/uL (1.6-8.6); Neutrophils % (auto) 51.1 % (37.0-80.0); Red Blood Cells 2.64 10^6/uL (4.0-5.20); White Blood Cell 2.6 10^3/uL (4.4-10.8)
[2022-09-14] MEDS ORDERED: HYDROmorphone HCL 2 MG/ML VL/or syr IV ONE (03:30)
[2022-09-14 03:35] LABS: INR 1.9 (0.9-1.15)
[2022-09-14 03:37] LABS: Albumin 1.6 g/dL (3.4-5.0); BUN/Creatinine Ratio 22.7 (10.0-20.0); Calcium 7.7 mg/dL (8.5-10.1)
[2022-09-14 03:40] LABS: Bilirubin, Total 7.3 mg/dL (0.2-1.0); Total Protein 6.3 g/dL (6.4-8.2)
[2022-09-14] MEDS ORDERED: cefTRIAXone SOD 1,000 MG VL IV ONE (04:00)
[2022-09-14 04:03] LABS: Potassium 2.9 mmol/L (3.5-5.1)
[2022-09-14 04:09] LABS: Red Cell Distribution Width 23.8 % (11.8-14.3)
[2022-09-14] MEDS ORDERED: POTASSIUM CHL 20 Meq TABLET PO ONE (04:15)
[2022-09-14] MEDS ORDERED: LACTULOSE 20Gm/30ML SOLN PO ONE (04:30)
[2022-09-14] MEDS ORDERED: MORPHINE SULFATE INJ 2 MG/ml SYRG IV PRN (05:15)
[2022-09-14] MEDS ORDERED: NITROGLYCERIN 0.4 MG SL TAB SL PRN (05:15)
[2022-09-14] MEDS ORDERED: DOCUSATE SOD 100 MG CAP PO PRN (05:15)
[2022-09-14] MEDS ORDERED: IBUPROFEN 400 MG TAB PO PRN (05:15)
[2022-09-14] MEDS: LACTULOSE 20Gm/30ML SOLN PO SCH ×5 (05:43→22:00)
[2022-09-14] MEDS: SODIUM CHLORIDE 0.9% 1,000 ML IV SCH ×2 (05:43→21:55)
[2022-09-14] MEDS: ALBUMIN 25% 100 ML IV SCH ×3 (05:44→20:56)
[2022-09-14 06:06] LABS: Urine Bacteria FEW /hpf (None Seen); Urine Blood Negative /uL (Negative); Urine Hyaline Cast FEW /lpf (0 - 2); Urine Mucus FEW (None Seen); Urine Specific Gravity 1.021 (1.001-1.035); Urine WBC 5 /hpf (0 - 5)
[2022-09-14 06:24] LABS: Hematocrit 29.5 % (36.0-46.0); Mean Corpuscular Hemoglobin 36.2 pg (28.0-32.0); Mean Corpuscular Hgb Conc. 33.9 g/dL (32.0-36.0); Mean Corpuscular Volume 106.7 fL (80.0-100.0); Red Blood Cells 2.77 10^6/uL (4.0-5.20)
[2022-09-14 06:36] LABS: Red Cell Distribution Width 23.9 % (11.8-14.3)
[2022-09-14 06:38] LABS: Albumin 1.7 g/dL (3.4-5.0); Calcium 7.5 mg/dL (8.5-10.1); Potassium 3.1 mmol/L (3.5-5.1)
[2022-09-14 06:42] LABS: BUN/Creatinine Ratio 18.4 (10.0-20.0); Total Protein 6.1 g/dL (6.4-8.2)
[2022-09-14 08:01] LABS: Basophils % (manual) 0 (0.0-2.0); Blast Cells 0; Metamyelocytes % 0; Myelocytes % 0; Promyelocytes % 0; Reactive Lymphocytes 0
[2022-09-14 08:13] LABS: Band Neutrophils % (manual) 7; Eosinophils % (manual) 2 (0-7); Lymphocytes % (manual) 39 (10.0-50.0); Monocytes % (manual) 2 (0-12)
[2022-09-14] MEDS: B-COMPLEX W/ C & FOLIC ACID(NEPHROVITE TAB) PO SCH (09:23)
[2022-09-14] MEDS: FAMOTIDINE (10MG/ML) 2ML VL IV SCH ×2 (09:23→20:57)
[2022-09-14] MEDS: THIAMINE HCL 100 MG TAB PO SCH (09:23)
[2022-09-14] MEDS: ONDANSETRON HCL 4 MG/2 ML VIAL IV PRN ×2 (09:27→22:29)
[2022-09-14] MEDS: METOCLOPRAMIDE HCL 5MG/ml INJ 2ml VIAL IV PRN (09:54)
[2022-09-14] MEDS: HYDROmorphone HCL 2 MG/ML VL/or syr IV PRN ×2 (09:57→22:29)
[2022-09-14 20:00] VITALS: BP 122/59
[2022-09-14] MEDS: HYDROcodone-ACET 5/325MG TAB PO PRN (20:55)
[2022-09-14] MEDS: cefTRIAXone 1GM/50ML D5W 50 ML IV SCH (20:57)
[2022-09-14 22:00] VITALS: BP 122/59
[2022-09-15] MEDS: LACTULOSE 20Gm/30ML SOLN PO SCH ×6 (02:00→21:04)
[2022-09-15 05:00] VITALS: BP 114/48
[2022-09-15 06:29] LABS: Potassium 3.6 mmol/L (3.5-5.1)
[2022-09-15 06:36] LABS: Hematocrit 23.6 % (36.0-46.0)
[2022-09-15 06:37] LABS: Hemoglobin 7.9 g/dL (12.2-16.2); Mean Corpuscular Hemoglobin 36.1 pg (28.0-32.0); Mean Corpuscular Hgb Conc. 33.6 g/dL (32.0-36.0); Mean Corpuscular Volume 107.4 fL (80.0-100.0)
[2022-09-15 06:39] LABS: Albumin 2.2 g/dL (3.4-5.0); BUN/Creatinine Ratio 18.5 (10.0-20.0); Calcium 7.1 mg/dL (8.5-10.1); Total Protein 5.3 g/dL (6.4-8.2)
[2022-09-15] MEDS: HYDROcodone-ACET 5/325MG TAB PO PRN (06:45)
[2022-09-15 06:48] LABS: White Blood Cell 1.4 10^3/uL (4.4-10.8)
[2022-09-15 06:49] LABS: Basophils % (manual) 0 (0.0-2.0); Blast Cells 0; Metamyelocytes % 0; Myelocytes % 0; Promyelocytes % 0; Reactive Lymphocytes 0
[2022-09-15] MEDS: ONDANSETRON HCL 4 MG/2 ML VIAL IV PRN ×2 (07:54→21:05)
[2022-09-15 07:55] LABS: Band Neutrophils % (manual) 3; Eosinophils % (manual) 8 (0-7); Lymphocytes % (manual) 28 (10.0-50.0); Monocytes % (manual) 1 (0-12)
[2022-09-15 08:00] VITALS: BP 120/56
[2022-09-15 09:00] VITALS: BP 120/56
[2022-09-15] MEDS: THIAMINE HCL 100 MG TAB PO SCH (11:34)
[2022-09-15] MEDS: B-COMPLEX W/ C & FOLIC ACID(NEPHROVITE TAB) PO SCH (11:34)
[2022-09-15] MEDS: FAMOTIDINE (10MG/ML) 2ML VL IV SCH ×2 (12:10→21:05)
[2022-09-15 12:30] VITALS: BP 108/46
[2022-09-15] MEDS: SODIUM CHLORIDE 0.9% 1,000 ML IV SCH (12:45)
[2022-09-15] MEDS: HYDROmorphone HCL 2 MG/ML VL/or syr IV PRN ×2 (14:25→21:06)
[2022-09-15 17:12] VITALS: BP 117/55
[2022-09-15 19:28] LABS: Urine Bacteria NONE SEEN /hpf (None Seen); Urine Blood Negative /uL (Negative); Urine Hyaline Cast FEW /lpf (0 - 2); Urine Mucus FEW (None Seen); Urine WBC 2 /hpf (0 - 5)
[2022-09-15 20:00] VITALS: BP 119/45
[2022-09-15] MEDS: cefTRIAXone 1GM/50ML D5W 50 ML IV SCH (21:04)
[2022-09-16 00:11] VITALS: BP 119/45
[2022-09-16] MEDS: LACTULOSE 20Gm/30ML SOLN PO SCH ×5 (01:13→18:00)
[2022-09-16] MEDS: ONDANSETRON HCL 4 MG/2 ML VIAL IV PRN ×2 (03:15→09:34)
[2022-09-16] MEDS: HYDROmorphone HCL 2 MG/ML VL/or syr IV PRN ×2 (03:16→09:35)
[2022-09-16 05:00] VITALS: BP 122/60
[2022-09-16] MEDS: SODIUM CHLORIDE 0.9% 1,000 ML IV SCH (07:15)
[2022-09-16 09:18] VITALS: BP 135/63
[2022-09-16] MEDS: FAMOTIDINE (10MG/ML) 2ML VL IV SCH (09:33)
[2022-09-16] MEDS: THIAMINE HCL 100 MG TAB PO SCH (09:34)
[2022-09-16] MEDS: B-COMPLEX W/ C & FOLIC ACID(NEPHROVITE TAB) PO SCH (09:34)
[2022-09-16] MEDS ORDERED: HYDR2TAB58 PO ×2 (10:54)
[2022-09-16] MEDS ORDERED: LEVO500T31 PO ×2 (10:54)
[2022-09-16] MEDS ORDERED: ONDA-144 PO ×2 (10:54)
[2022-09-16 13:00] VITALS: BP 145/79
[2022-09-16] MEDS: METOCLOPRAMIDE HCL 5MG/ml INJ 2ml VIAL IV PRN (15:25)
== END 2022-09-16 19:07 | disposition hospice, home (50) | DRG 248 ==
LOC: ER 02:13 → EDBD 02:13 → EDUNIT# 02:13 → TELE 05:11 → TELE-WESTW 18:15
PROVIDERS: ADMIT Nurse Practitioner Family; ATTEND Family Medicine
DX: K65.9 Peritonitis, unspecified (principal); D61.818 Other pancytopenia; E43 Unspecified severe protein-calorie malnutrition; K76.82 Hepatic encephalopathy; R18.8 Other ascites; D63.8 Anemia in other chronic diseases classified elsewhere; D75.89 Other specified diseases of blood and blood-forming organs; E87.6 Hypokalemia; M32.9 Systemic lupus erythematosus, unspecified; N18.9 Chronic kidney disease, unspecified; F10.20 Alcohol dependence, uncomplicated; Z66 Do not resuscitate; Z85.05 Personal history of malignant neoplasm of liver; Z87.440 Personal history of urinary (tract) infections; Z51.5 Encounter for palliative care; Z79.899 Other long term (current) drug therapy; Z80.3 Family history of malignant neoplasm of breast
CPT/HCPCS: 36415; 74176; 76705; 80053; 81001; 82140; 83690; 85007; 85025; 85027; 85610; 86038; 86850; 86900; 86901; 87086; 87088; 87186; 87205; 89051; 96374; 96375; G0378; J0696; J2405; J3490; P9047

== ENCOUNTER 2022-09-19 13:46 | Inpatient (IN) | payer OTHER ==
[~2022-09-19] VITALS: Ht 149.9 cm; Wt 55.2 kg
[~2022-09-19 13:46] MED LIST changes: +HYDR2TAB58 PO; +LEVO500T31 PO
[2022-09-19] MEDS ORDERED: SODIUM CHLORIDE 0.9% 500 ML IVB ONE (14:00)
[2022-09-19] MEDS ORDERED: MORPHINE SULFATE 4 MG/ML SYR/VIAL IV ONE (14:00)
[2022-09-19] MEDS ORDERED: ONDANSETRON HCL 4 MG/2 ML VIAL IV ONE (14:00)
[2022-09-19] MEDS ORDERED: PANTOPRAZOLE 40 MG/10 ML VIAL INJ IV ONE (14:00)
[2022-09-19 14:19] LABS: Basophils # (auto) 0 10 ^3/uL (0-0.2); Eosinophils # (auto) 0.1 10 ^3/uL (0-0.8); Lymphocytes # (auto) 0.7 10 ^3/uL (0.4-5.4); Monocytes # (auto) 0.6 10 ^3/uL (0-1.3); Nucleated Red Blood Cells % 0.3 %
[2022-09-19 14:21] LABS: Basophils % (auto) 1.3 % (0.0-2.0); Eosinophils % (auto) 3.2 % (0.0-7.0); Hematocrit 22.2 % (36.0-46.0); Hemoglobin 7.5 g/dL (12.2-16.2); Mean Corpuscular Hemoglobin 35.7 pg (28.0-32.0); Mean Corpuscular Hgb Conc. 33.7 g/dL (32.0-36.0); Neutrophils # (auto) 1.3 10 ^3/uL (1.6-8.6); Red Blood Cells 2.09 10^6/uL (4.0-5.20); White Blood Cell 2.6 10^3/uL (4.4-10.8)
[2022-09-19 14:24] LABS: Monocytes % (auto) 21.5 % (0.0-12.0); Red Cell Distribution Width 23.8 % (11.8-14.3)
[2022-09-19 14:45] LABS: Albumin 2.3 g/dL (3.4-5.0); Calcium 7.5 mg/dL (8.5-10.1); Magnesium 1.5 mg/dL (1.6-2.6)
[2022-09-19 14:48] LABS: Bilirubin, Total 6.6 mg/dL (0.2-1.0); Potassium 3.1 mmol/L (3.5-5.1); Total Protein 6.4 g/dL (6.4-8.2)
[2022-09-19 14:55] LABS: INR 1.77 (0.9-1.15); Partial Thromboplastin Time 42.2 sec (24.6-33.4)
[2022-09-19 15:07] LABS: Urine WBC None Seen /hpf (0 - 5)
[2022-09-19 15:21] LABS: Urine Bacteria NONE SEEN /hpf (None Seen); Urine Blood Negative /uL (Negative); Urine Specific Gravity 1.007 (1.001-1.035)
[2022-09-19] MEDS ORDERED: POTASSIUM EFFERVESENT TAB 25 MEQ PO ONE (18:00)
[2022-09-19] MEDS ORDERED: traMADol HCL 50 MG TAB PO PRN (18:00)
[2022-09-19 18:58] LABS: Cholesterol < 50 mg/dL (< 200); Triglycerides 54 mg/dL (< 150)
[2022-09-19 19:01] LABS: HDL Cholesterol 20 mg/dL (40-59); LDL Cholesterol 28 mg/dL (< 100)
[2022-09-19] MEDS: MAGNESIUM SULFATE 1GM/100ML 100 ML IV SCH (19:10)
[2022-09-19 22:00] VITALS: BP 141/59
[2022-09-19 22:46] VITALS: BP 141/59
[2022-09-19] MEDS ORDERED: MORPHINE SULFATE INJ 2 MG/ml SYRG ONE (23:35)
[2022-09-19] MEDS: MORPHINE SULFATE INJ 2 MG/ml SYRG IV PRN (23:42)
[2022-09-20] MEDS ORDERED: THIAMINE 100mg/ml INJ (200mg/2ml VIAL) ONE (00:49)
[2022-09-20] MEDS ORDERED: MAGNESIUM SULFATE 1GM/100ML 200 ML IV ONE ×2 (00:58→01:07)
[2022-09-20] MEDS ORDERED: THIAMINE HCL 100 MG TAB ONE (01:28)
[2022-09-20] MEDS: MAGNESIUM SULFATE 1GM/100ML 100 ML IV SCH ×2 (01:40→04:04)
[2022-09-20] MEDS: THIAMINE HCL 100 MG TAB PO SCH ×2 (02:11→09:19)
[2022-09-20] MEDS ORDERED: MORPHINE SULFATE INJ 2 MG/ml SYRG ONE (04:13)
[2022-09-20] MEDS: MORPHINE SULFATE INJ 2 MG/ml SYRG IV PRN ×2 (04:26→08:51)
[2022-09-20 05:00] VITALS: BP 104/48
[2022-09-20 08:46] VITALS: BP 123/89
[2022-09-20 08:51] VITALS: BP 114/51
[2022-09-20] MEDS ORDERED: PANTOPRAZOLE 40 MG TAB PO SCH (10:00)
[2022-09-20] MEDS ORDERED: Folic Acid-Pyridoxine-Cyancoba (Folbic) PO SCH (10:00)
[2022-09-22 08:59] LABS: Folate (Folic Acid) 8.93 ng/mL (5.38-24)
== END 2022-09-20 10:32 | disposition left against medical advice (07) ==
LOC: ER 13:46 → EDBD 13:46 → WEST WING 17:55 → ER 20:52
PROVIDERS: ADMIT Nurse Practitioner Family; ATTEND Internal Medicine Pulmonary Disease
DX: R18.8 Other ascites (principal); D69.59 Other secondary thrombocytopenia; K74.60 Unspecified cirrhosis of liver; D53.9 Nutritional anemia, unspecified; K29.20 Alcoholic gastritis without bleeding; E83.42 Hypomagnesemia; K42.9 Umbilical hernia without obstruction or gangrene; E87.6 Hypokalemia; Z53.29 Procedure and treatment not carried out because of patient's decision for other reasons; Z85.05 Personal history of malignant neoplasm of liver
CPT/HCPCS: 36415; 74176; 80053; 80061; 81001; 82607; 82746; 83540; 83550; 83735; 84443; 85025; 85610; 85730; 86850; 86900; 86901; 87081; 96361; 96375; C9113; G0378; J2405

== ENCOUNTER 2022-09-22 09:57 | Inpatient (IN) | payer OTHER ==
[~2022-09-22] VITALS: Ht 154.9 cm; Wt 57.3 kg
[2022-09-22] MEDS ORDERED: SODIUM CHLORIDE 0.9% 1,000 ML IV ONE (10:15)
[2022-09-22 10:38] LABS: Hematocrit 22.3 % (36.0-46.0); Hemoglobin 7.4 g/dL (12.2-16.2); Mean Corpuscular Hemoglobin 35.9 pg (28.0-32.0); Mean Corpuscular Hgb Conc. 33.2 g/dL (32.0-36.0); Mean Corpuscular Volume 108.4 fL (80.0-100.0); Red Blood Cells 2.06 10^6/uL (4.0-5.20); White Blood Cell 4.9 10^3/uL (4.4-10.8)
[2022-09-22 10:46] LABS: Red Cell Distribution Width 24.9 % (11.8-14.3)
[2022-09-22 10:47] LABS: Basophils % (manual) 0 (0.0-2.0); Blast Cells 0; Metamyelocytes % 0; Myelocytes % 0; Promyelocytes % 0; Reactive Lymphocytes 0
[2022-09-22 11:04] LABS: Band Neutrophils % (manual) 10; Eosinophils % (manual) 3 (0-7); Lymphocytes % (manual) 22 (10.0-50.0); Monocytes % (manual) 11 (0-12)
[2022-09-22 11:09] LABS: Albumin 2.3 g/dL (3.4-5.0); Calcium 7.7 mg/dL (8.5-10.1); Potassium 3.7 mmol/L (3.5-5.1)
[2022-09-22 11:13] LABS: BUN/Creatinine Ratio 22.5 (10.0-20.0); Bilirubin, Total 6.8 mg/dL (0.2-1.0); Total Protein 6.2 g/dL (6.4-8.2)
[2022-09-22] MEDS: LACTULOSE 20Gm/30ML SOLN PO SCH ×3 (11:14→23:12)
[2022-09-22] MEDS ORDERED: MORPHINE SULFATE INJ 2 MG/ml SYRG IV ONE (12:30)
[2022-09-22] MEDS ORDERED: ONDANSETRON HCL 4 MG/2 ML VIAL IV ONE (12:30)
[2022-09-22] MEDS: MAGNESIUM SULFATE 1GM/100ML 100 ML IV SCH ×3 (13:00→15:00)
[2022-09-22] MEDS ORDERED: SODIUM FERR GLUC 62.5MG/5ML 125 MG in SODIUM CHL 0.9% 100 ML IV ONE (13:15)
[2022-09-22] MEDS ORDERED: PANTOPRAZOLE 40 MG/10 ML VIAL INJ IV ONE (13:30)
[2022-09-22 14:09] LABS: Urine Bacteria NONE SEEN /hpf (None Seen); Urine Blood Negative /uL (Negative); Urine Specific Gravity 1.019 (1.001-1.035); Urine WBC 1 /hpf (0 - 5)
[2022-09-22 14:31] LABS: Amphetamine Screen, Urine NEGATIVE (NEGATIVE); Barbiturate Scree,Urine NEGATIVE (NEGATIVE); Benzodiazephine Screen, Urine NEGATIVE (NEGATIVE); Cannabinoid Screen, Urine NEGATIVE (NEGATIVE); Cocaine Screen, Urine NEGATIVE (NEGATIVE); Opiate Scree,Urine POSITIVE (NEGATIVE); Phencyclidine Screen, Urine NEGATIVE (NEGATIVE)
[2022-09-22 14:59] LABS: INR 1.73 (0.9-1.15); Partial Thromboplastin Time 42.6 sec (24.6-33.4)
[2022-09-22] MEDS: HYDROmorphone HCL 2 MG/ML VL/or syr IV PRN ×2 (15:22→23:00)
[2022-09-22 21:15] VITALS: BP 138/66
[2022-09-22 21:26] VITALS: BP 138/64
[2022-09-22 21:37] VITALS: BP 138/61
[2022-09-22] MEDS: THIAMINE HCL 100 MG TAB PO SCH (23:12)
[2022-09-22 23:47] VITALS: BP 163/63
[2022-09-23] VITALS (7 sets, daily range): BP systolic 122–149; BP diastolic 51–70
[2022-09-23] MEDS: ONDANSETRON HCL 4 MG/2 ML VIAL IV PRN (02:21)
[2022-09-23] MEDS ORDERED: HYDR2TAB2 PO (02:56)
[2022-09-23] MEDS ORDERED: ONDA-155 (02:56)
[2022-09-23] MEDS ORDERED: LACT10SO3 PO (02:56)
[2022-09-23] MEDS ORDERED: PANT40T PO (02:56)
[2022-09-23] MEDS ORDERED: SPIR100T (02:56)
[2022-09-23] MEDS ORDERED: FURO40TA4 PO (02:56)
[2022-09-23 05:56] LABS: Hemoglobin 9.2 g/dL (12.2-16.2); White Blood Cell 4.8 10^3/uL (4.4-10.8)
[2022-09-23 05:58] LABS: Hematocrit 27.6 % (36.0-46.0); Mean Corpuscular Hemoglobin 35.5 pg (28.0-32.0); Mean Corpuscular Hgb Conc. 33.4 g/dL (32.0-36.0); Mean Corpuscular Volume 106.3 fL (80.0-100.0); Red Blood Cells 2.59 10^6/uL (4.0-5.20)
[2022-09-23] MEDS: LACTULOSE 20Gm/30ML SOLN PO SCH ×3 (06:13→17:52)
[2022-09-23 06:15] LABS: Albumin 2.3 g/dL (3.4-5.0); Calcium 7.9 mg/dL (8.5-10.1); Potassium 3.5 mmol/L (3.5-5.1)
[2022-09-23] MEDS: HYDROmorphone HCL 2 MG/ML VL/or syr IV PRN ×3 (06:18→22:24)
[2022-09-23 06:20] LABS: BUN/Creatinine Ratio 16.7 (10.0-20.0); Total Protein 6.2 g/dL (6.4-8.2)
[2022-09-23 06:24] LABS: Red Cell Distribution Width 24.6 % (11.8-14.3)
[2022-09-23 06:25] LABS: Basophils % (manual) 0 (0.0-2.0); Blast Cells 0; Metamyelocytes % 0; Promyelocytes % 0; Reactive Lymphocytes 0
[2022-09-23] MEDS: PYRIDOXINE PO SCH (09:49)
[2022-09-23] MEDS: FOLIC ACID PO SCH (09:49)
[2022-09-23] MEDS: CYANOCOBALAMIN PO SCH (09:49)
[2022-09-23] MEDS: PANTOPRAZOLE 40 MG/10 ML VIAL INJ IV SCH ×2 (09:54)
[2022-09-23] MEDS: THIAMINE HCL 100 MG TAB PO SCH ×2 (09:54→22:21)
[2022-09-23] MEDS ORDERED: SODIUM FERR GLUC 62.5MG/5ML 125 MG in SODIUM CHL 0.9% 100 ML IV SCH (12:00)
[2022-09-23 12:21] LABS: Band Neutrophils % (manual) 1; Eosinophils % (manual) 2 (0-7); Lymphocytes % (manual) 11 (10.0-50.0); Monocytes % (manual) 10 (0-12); Myelocytes % 5
[2022-09-23] MEDS: IRON SUCROSE COMPLEX 200 MG in SODIUM CHL 0.9% 100 ML IV SCH (14:56)
[2022-09-24] MEDS: LACTULOSE 20Gm/30ML SOLN PO SCH ×4 (00:03→18:08)
[2022-09-24] MEDS: HYDROmorphone HCL 2 MG/ML VL/or syr IV PRN ×3 (04:48→18:09)
[2022-09-24 05:00] VITALS: BP 134/62
[2022-09-24 05:39] LABS: Hemoglobin 8.5 g/dL (12.2-16.2); Mean Corpuscular Hgb Conc. 33.6 g/dL (32.0-36.0); White Blood Cell 3.5 10^3/uL (4.4-10.8)
[2022-09-24 05:41] LABS: Hematocrit 25.1 % (36.0-46.0); Mean Corpuscular Hemoglobin 35.3 pg (28.0-32.0); Red Blood Cells 2.39 10^6/uL (4.0-5.20)
[2022-09-24 05:54] LABS: Albumin 2.1 g/dL (3.4-5.0); Calcium 7.7 mg/dL (8.5-10.1); Potassium 3.3 mmol/L (3.5-5.1)
[2022-09-24 05:57] LABS: BUN/Creatinine Ratio 12.8 (10.0-20.0); Total Protein 5.8 g/dL (6.4-8.2)
[2022-09-24 06:03] LABS: Basophils % (manual) 0 (0.0-2.0); Blast Cells 0; Metamyelocytes % 0; Monocytes % (manual) 0 (0-12); Promyelocytes % 0
[2022-09-24 07:56] LABS: Band Neutrophils % (manual) 1; Eosinophils % (manual) 4 (0-7); Lymphocytes % (manual) 25 (10.0-50.0); Myelocytes % 1; Reactive Lymphocytes 1
[2022-09-24] MEDS: FOLIC ACID PO SCH (09:43)
[2022-09-24] MEDS: PANTOPRAZOLE 40 MG/10 ML VIAL INJ IV SCH ×2 (09:43)
[2022-09-24] MEDS: PYRIDOXINE PO SCH (09:43)
[2022-09-24] MEDS: CYANOCOBALAMIN PO SCH (09:43)
[2022-09-24] MEDS: THIAMINE HCL 100 MG TAB PO SCH ×2 (09:43→21:30)
[2022-09-24] MEDS: IRON SUCROSE COMPLEX 200 MG in SODIUM CHL 0.9% 100 ML IV SCH (12:27)
[2022-09-24 17:00] VITALS: BP 142/52
[2022-09-24 20:00] VITALS: BP 148/71
[2022-09-24 22:00] VITALS: BP 148/71
[2022-09-25] MEDS: LACTULOSE 20Gm/30ML SOLN PO SCH ×5 (00:28→23:57)
[2022-09-25] MEDS: HYDROmorphone HCL 2 MG/ML VL/or syr IV PRN ×4 (00:33→20:47)
[2022-09-25 05:00] VITALS: BP 140/74
[2022-09-25 08:00] VITALS: BP 132/54
[2022-09-25 09:00] VITALS: BP 132/54
[2022-09-25] MEDS: PYRIDOXINE PO SCH (10:00)
[2022-09-25] MEDS: CYANOCOBALAMIN PO SCH (10:00)
[2022-09-25] MEDS: FOLIC ACID PO SCH (10:00)
[2022-09-25] MEDS: THIAMINE HCL 100 MG TAB PO SCH ×2 (10:18→20:49)
[2022-09-25] MEDS: PANTOPRAZOLE 40 MG/10 ML VIAL INJ IV SCH (10:18)
[2022-09-25] MEDS: HYDROcodone-ACET 5/325MG TAB PO PRN ×3 (12:13→23:58)
[2022-09-25] MEDS: IRON SUCROSE COMPLEX 200 MG in SODIUM CHL 0.9% 100 ML IV SCH (12:14)
[2022-09-25 13:00] VITALS: BP_SYST 126; BP_SYST 131; BP_DIAS 49; BP_DIAS 53
[2022-09-25 17:00] VITALS: BP 144/69
[2022-09-25 22:00] VITALS: BP 132/58
[2022-09-26] MEDS: HYDROmorphone HCL 2 MG/ML VL/or syr IV PRN ×4 (03:13→22:44)
[2022-09-26 05:00] VITALS: BP 149/65
[2022-09-26] MEDS: LACTULOSE 20Gm/30ML SOLN PO SCH ×4 (06:06→23:31)
[2022-09-26] MEDS: HYDROcodone-ACET 5/325MG TAB PO PRN ×3 (06:12→21:10)
[2022-09-26 08:00] VITALS: BP 122/36
[2022-09-26] MEDS: PYRIDOXINE PO SCH (10:00)
[2022-09-26] MEDS: FOLIC ACID PO SCH (10:00)
[2022-09-26] MEDS: CYANOCOBALAMIN PO SCH (10:00)
[2022-09-26] MEDS: PANTOPRAZOLE 40 MG/10 ML VIAL INJ IV SCH (10:01)
[2022-09-26] MEDS: THIAMINE HCL 100 MG TAB PO SCH ×2 (10:01→21:12)
[2022-09-26 12:00] VITALS: BP 131/60
[2022-09-26] MEDS: IRON SUCROSE COMPLEX 200 MG in SODIUM CHL 0.9% 100 ML IV SCH (12:00)
[2022-09-26 16:00] VITALS: BP_SYST 131; BP_SYST 150; BP_DIAS 60; BP_DIAS 68
[2022-09-26 22:00] VITALS: BP 122/56
[2022-09-27] MEDS: HYDROcodone-ACET 5/325MG TAB PO PRN ×3 (03:50→20:08)
[2022-09-27 05:00] VITALS: BP 120/56
[2022-09-27] MEDS: LACTULOSE 20Gm/30ML SOLN PO SCH ×4 (05:40→23:59)
[2022-09-27] MEDS: HYDROmorphone HCL 2 MG/ML VL/or syr IV PRN ×3 (05:42→19:04)
[2022-09-27 09:00] VITALS: BP 131/57
[2022-09-27] MEDS: THIAMINE HCL 100 MG TAB PO SCH ×2 (09:33→22:22)
[2022-09-27] MEDS: PANTOPRAZOLE 40 MG/10 ML VIAL INJ IV SCH (09:33)
[2022-09-27] MEDS: CYANOCOBALAMIN PO SCH (10:00)
[2022-09-27] MEDS: FOLIC ACID PO SCH (10:00)
[2022-09-27] MEDS: PYRIDOXINE PO SCH (10:00)
[2022-09-27 13:00] VITALS: BP 111/59
[2022-09-27] MEDS: IRON SUCROSE COMPLEX 200 MG in SODIUM CHL 0.9% 100 ML IV SCH (13:20)
[2022-09-27 17:00] VITALS: BP 122/41
[2022-09-27 20:00] VITALS: BP 135/58
[2022-09-27 22:00] VITALS: BP 133/59
[2022-09-28] MEDS: HYDROmorphone HCL 2 MG/ML VL/or syr IV PRN ×5 (00:01→19:33)
[2022-09-28] MEDS: HYDROcodone-ACET 5/325MG TAB PO PRN ×2 (02:21→22:17)
[2022-09-28 05:00] VITALS: BP 135/59
[2022-09-28] MEDS: LACTULOSE 20Gm/30ML SOLN PO SCH ×3 (05:28→17:53)
[2022-09-28 09:00] VITALS: BP 115/50
[2022-09-28] MEDS: PANTOPRAZOLE 40 MG/10 ML VIAL INJ IV SCH (09:01)
[2022-09-28] MEDS: THIAMINE HCL 100 MG TAB PO SCH ×2 (09:01→22:17)
[2022-09-28] MEDS: FOLIC ACID PO SCH (10:00)
[2022-09-28] MEDS: PYRIDOXINE PO SCH (10:00)
[2022-09-28] MEDS: CYANOCOBALAMIN PO SCH (10:00)
[2022-09-28] MEDS: IRON SUCROSE COMPLEX 200 MG in SODIUM CHL 0.9% 100 ML IV SCH (13:16)
[2022-09-28 13:20] VITALS: BP 131/64
[2022-09-28 17:16] VITALS: BP 133/61
[2022-09-28] MEDS: ONDANSETRON HCL 4 MG/2 ML VIAL IV PRN (19:32)
[2022-09-28 22:00] VITALS: BP 125/65
[2022-09-29] MEDS: LACTULOSE 20Gm/30ML SOLN PO SCH ×3 (01:00→12:00)
[2022-09-29] MEDS: HYDROmorphone HCL 2 MG/ML VL/or syr IV PRN ×2 (02:56→07:09)
[2022-09-29] MEDS: ONDANSETRON HCL 4 MG/2 ML VIAL IV PRN (02:56)
[2022-09-29 05:00] VITALS: BP 132/61
[2022-09-29] MEDS: HYDROcodone-ACET 5/325MG TAB PO PRN ×2 (05:40→10:49)
[2022-09-29 08:30] VITALS: BP 133/56
[2022-09-29] MEDS: FOLIC ACID PO SCH (10:00)
[2022-09-29] MEDS: PANTOPRAZOLE 40 MG/10 ML VIAL INJ IV SCH (10:00)
[2022-09-29] MEDS: PYRIDOXINE PO SCH (10:00)
[2022-09-29] MEDS: CYANOCOBALAMIN PO SCH (10:00)
[2022-09-29] MEDS: THIAMINE HCL 100 MG TAB PO SCH (11:17)
[2022-09-29] MEDS: IRON SUCROSE COMPLEX 200 MG in SODIUM CHL 0.9% 100 ML IV SCH (12:00)
[2022-09-29 12:30] VITALS: BP 125/54
[2022-09-29 13:42] VITALS: BP 133/56
[2022-09-29] MEDS ORDERED: HYDR-4902 PO (15:22)
== END 2022-09-29 16:34 | disposition home or self-care (01) | DRG 248 ==
LOC: ER 09:57 → TELE 13:06 → OVERFLOW 14:08 → CENTRAL 20:30
PROVIDERS: ADMIT Nurse Practitioner Family; ATTEND Family Medicine
PROC: 30233N1 Transfusion of Nonautologous Red Blood Cells into Peripheral Vein, Percutaneous Approach (ICD-10-PCS; principal; 2022-09-22)
DX: K65.9 Peritonitis, unspecified (principal); D61.818 Other pancytopenia; K76.82 Hepatic encephalopathy; C22.9 Malignant neoplasm of liver, not specified as primary or secondary; K72.10 Chronic hepatic failure without coma; R45.851 Suicidal ideations; D63.8 Anemia in other chronic diseases classified elsewhere; D50.9 Iron deficiency anemia, unspecified; E87.6 Hypokalemia; F32.A Depression, unspecified; Z20.822 Contact with and (suspected) exposure to COVID-19; F10.20 Alcohol dependence, uncomplicated; Y90.9 Presence of alcohol in blood, level not specified; E80.6 Other disorders of bilirubin metabolism; K74.60 Unspecified cirrhosis of liver; N18.9 Chronic kidney disease, unspecified; Z85.05 Personal history of malignant neoplasm of liver; Z87.440 Personal history of urinary (tract) infections; Z79.891 Long term (current) use of opiate analgesic; Z79.899 Other long term (current) drug therapy
CPT/HCPCS: 36415; 70450; 71045; 76705; 80053; 80307; 81001; 82105; 82140; 83735; 84484; 85007; 85027; 85610; 85730; 86301; 86304; 86850; 86900; 86901; 86920; 87081; 87426; 93005; 96361; 96374; 96375; 97116; 97163; 97530; C9113; G0378; J1756; J2405

== ENCOUNTER 2022-09-30 12:10 | Emergency (ER) | payer OTHER ==
[~2022-09-30] VITALS: Ht 160 cm; Wt 59.0 kg
[~2022-09-30 12:10] MED LIST changes: +FURO40TA4 PO; +HYDR-4902 PO; +HYDR2TAB2 PO; +LACT10SO3 PO; +ONDA-155; +PANT40T PO; +SPIR100T
[2022-09-30 13:12] VITALS: BP 129/73
[2022-09-30 13:43] LABS: Eosinophils # (auto) 0.1 10 ^3/uL (0-0.8); Monocytes # (auto) 0.3 10 ^3/uL (0-1.3)
[2022-09-30 13:44] LABS: Basophils # (auto) 0.1 10 ^3/uL (0-0.2); Basophils % (auto) 2.7 % (0.0-2.0); Eosinophils % (auto) 2.7 % (0.0-7.0); Hematocrit 26.8 % (36.0-46.0); Hemoglobin 8.7 g/dL (12.2-16.2); Lymphocytes % (auto) 30.1 % (10.0-50.0); Mean Corpuscular Hemoglobin 34.6 pg (28.0-32.0); Mean Corpuscular Hgb Conc. 32.3 g/dL (32.0-36.0); Monocytes % (auto) 9.7 % (0.0-12.0); Neutrophils # (auto) 1.8 10 ^3/uL (1.6-8.6); Neutrophils % (auto) 54.8 % (37.0-80.0); Nucleated Red Blood Cells % 0.5 %; White Blood Cell 3.3 10^3/uL (4.4-10.8)
[2022-09-30 13:54] LABS: Red Cell Distribution Width 28.1 % (11.8-14.3)
[2022-09-30 14:11] LABS: INR 2.02 (0.9-1.15); Partial Thromboplastin Time 51.5 sec (24.6-33.4)
[2022-09-30 14:15] LABS: Potassium 3.4 mmol/L (3.5-5.1)
[2022-09-30 14:33] LABS: Albumin 2.1 g/dL (3.4-5.0); BUN/Creatinine Ratio 28.1 (10.0-20.0); Bilirubin, Total 5.7 mg/dL (0.2-1.0); Calcium 7.3 mg/dL (8.5-10.1); Total Protein 6.7 g/dL (6.4-8.2)
== END 2022-09-30 19:39 | disposition left against medical advice (07) ==
LOC: EDBD 12:10 → ER 12:10
DX: R18.8 Other ascites (principal); K72.10 Chronic hepatic failure without coma; N18.9 Chronic kidney disease, unspecified; Z87.440 Personal history of urinary (tract) infections; Z90.49 Acquired absence of other specified parts of digestive tract; Z86.73 Personal history of transient ischemic attack (TIA), and cerebral infarction without residual deficits
CPT/HCPCS: 36415; 76705; 80053; 83690; 85025; 85610; 85730

== ENCOUNTER 2022-11-18 17:31 | Inpatient (IN) | payer OTHER ==
[~2022-11-18] VITALS: Ht 165.1 cm; Wt 40.8 kg
[2022-11-18 18:55] LABS: Hemoglobin 8.5 g/dL (12.2-16.2)
[2022-11-18 18:57] LABS: Hematocrit 26.1 % (36.0-46.0); Mean Corpuscular Hemoglobin 33.2 pg (28.0-32.0); Mean Corpuscular Hgb Conc. 32.4 g/dL (32.0-36.0); Mean Corpuscular Volume 102.5 fL (80.0-100.0); Red Blood Cells 2.55 10^6/uL (4.0-5.20)
[2022-11-18 19:02] LABS: Red Cell Distribution Width 25.7 % (11.8-14.3)
[2022-11-18 19:05] LABS: Basophils % (manual) 0 (0.0-2.0); Blast Cells 0; Metamyelocytes % 0; Promyelocytes % 0; Reactive Lymphocytes 0
[2022-11-18 19:15] LABS: Albumin 2.3 g/dL (3.4-5.0); BUN/Creatinine Ratio 18.8 (10.0-20.0); Calcium 7.7 mg/dL (8.5-10.1); Potassium 3.8 mmol/L (3.5-5.1)
[2022-11-18 19:18] LABS: Bilirubin, Total 5.1 mg/dL (0.2-1.0); Total Protein 6.8 g/dL (6.4-8.2)
[2022-11-18 20:01] LABS: Band Neutrophils % (manual) 6; Eosinophils % (manual) 1 (0-7); Lymphocytes % (manual) 31 (10.0-50.0); Monocytes % (manual) 2 (0-12); Myelocytes % 1
[2022-11-18] MEDS ORDERED: LACTULOSE 20Gm/30ML SOLN PO ONE (22:15)
[2022-11-19] MEDS ORDERED: ONDANSETRON HCL 4 MG/2 ML VIAL IV ONE
[2022-11-19] MEDS ORDERED: MORPHINE SULFATE INJ 2 MG/ml SYRG IV ONE
[2022-11-19] MEDS ORDERED: ONDANSETRON HCL 4 MG/2 ML VIAL IV PRN (02:45)
[2022-11-19] MEDS: LACTULOSE 20Gm/30ML SOLN PO SCH ×2 (09:41→21:45)
[2022-11-19] MEDS: rifAXIMin 550 MG TAB PO SCH ×2 (09:41→21:45)
[2022-11-19] MEDS ORDERED: PANTOPRAZOLE 40 MG TAB PO SCH (10:00)
[2022-11-19] MEDS: FUROSEMIDE 40 MG TAB PO SCH (10:39)
[2022-11-19 17:18] LABS: INR 1.6 (0.9-1.15); Partial Thromboplastin Time 38.8 SEC (24.5-34.5)
[2022-11-19] MEDS: Ensure HIGH Protein Chocolate 8oz Bottle PO SCH (19:00)
[2022-11-19 19:20] VITALS: BP 125/55
[2022-11-19] MEDS: METOCLOPRAMIDE HCL 10 MG TAB PO SCH (21:45)
[2022-11-19 22:00] VITALS: BP 138/65
[2022-11-20 04:46] LABS: Hematocrit 26.7 % (36.0-46.0); Mean Corpuscular Hemoglobin 34.3 pg (28.0-32.0); Mean Corpuscular Hgb Conc. 33.7 g/dL (32.0-36.0); Mean Corpuscular Volume 101.7 fL (80.0-100.0); Red Blood Cells 2.62 10^6/uL (4.0-5.20)
[2022-11-20 05:00] VITALS: BP 123/61
[2022-11-20 05:02] LABS: Albumin 2.2 g/dL (3.4-5.0); Calcium 7.5 mg/dL (8.5-10.1); Potassium 4.2 mmol/L (3.5-5.1)
[2022-11-20 05:05] LABS: BUN/Creatinine Ratio 24.4 (10.0-20.0)
[2022-11-20 05:06] LABS: Red Cell Distribution Width 24.1 % (11.8-14.3)
[2022-11-20 05:08] LABS: Band Neutrophils % (manual) 0; Basophils % (manual) 0 (0.0-2.0); Bilirubin, Total 6.5 mg/dL (0.2-1.0); Blast Cells 0; Metamyelocytes % 0; Myelocytes % 0; Promyelocytes % 0; Reactive Lymphocytes 0; Total Protein 6.8 g/dL (6.4-8.2); White Blood Cell 1.7 10^3/uL (4.4-10.8)
[2022-11-20] MEDS: Ensure HIGH Protein Chocolate 8oz Bottle PO SCH ×3 (08:00→18:19)
[2022-11-20 08:42] LABS: Eosinophils % (manual) 1 (0-7); Lymphocytes % (manual) 23 (10.0-50.0); Monocytes % (manual) 6 (0-12)
[2022-11-20 09:00] VITALS: BP 115/51
[2022-11-20] MEDS: LACTULOSE 20Gm/30ML SOLN PO SCH ×3 (10:57→21:41)
[2022-11-20] MEDS: rifAXIMin 550 MG TAB PO SCH ×2 (10:59→21:42)
[2022-11-20] MEDS: PANTOPRAZOLE 40 MG/10 ML VIAL INJ IV SCH (10:59)
[2022-11-20] MEDS: METOCLOPRAMIDE HCL 10 MG TAB PO SCH ×2 (11:07→21:42)
[2022-11-20] MEDS: FUROSEMIDE 40 MG TAB PO SCH (11:08)
[2022-11-20 11:50] LABS: Urine Amorphous Crystal MANY /hpf (None Seen); Urine Bacteria FEW /hpf (None Seen); Urine Blood Negative /uL (Negative); Urine Mucus FEW (None Seen); Urine Specific Gravity 1.019 (1.001-1.035); Urine WBC 46 /hpf (0 - 5); Urine WBC Clumps PRESENT /hpf (None Seen)
[2022-11-20 12:37] LABS: Amphetamine Screen, Urine NEGATIVE (NEGATIVE); Barbiturate Scree,Urine NEGATIVE (NEGATIVE); Benzodiazephine Screen, Urine NEGATIVE (NEGATIVE); Cannabinoid Screen, Urine NEGATIVE (NEGATIVE); Cocaine Screen, Urine NEGATIVE (NEGATIVE); Opiate Scree,Urine NEGATIVE (NEGATIVE); Phencyclidine Screen, Urine NEGATIVE (NEGATIVE)
[2022-11-20 13:00] VITALS: BP 98/41
[2022-11-20 13:52] LABS: Alcohol, Urine < 3.0 mg/dL (0-10)
[2022-11-20 17:00] VITALS: BP 124/54
[2022-11-20 20:00] VITALS: BP 121/65
[2022-11-20] MEDS ORDERED: LORazepam 2MG/ML-1ML VIAL IV PRN (21:15)
[2022-11-20 22:00] VITALS: BP 121/65
[2022-11-21] MEDS: LACTULOSE 20Gm/30ML SOLN PO SCH ×4 (05:29→21:36)
[2022-11-21 05:43] LABS: Hemoglobin 9.1 g/dL (12.2-16.2)
[2022-11-21 05:46] LABS: Mean Corpuscular Hemoglobin 34.4 pg (28.0-32.0); Mean Corpuscular Hgb Conc. 33.8 g/dL (32.0-36.0); Mean Corpuscular Volume 101.6 fL (80.0-100.0); Red Blood Cells 2.65 10^6/uL (4.0-5.20)
[2022-11-21 05:59] LABS: BUN/Creatinine Ratio 30.2 (10.0-20.0); Calcium 7.8 mg/dL (8.5-10.1); Potassium 3.7 mmol/L (3.5-5.1)
[2022-11-21 06:04] LABS: Red Cell Distribution Width 23.6 % (11.8-14.3)
[2022-11-21 06:05] LABS: White Blood Cell 1.4 10^3/uL (4.4-10.8)
[2022-11-21 06:07] LABS: Basophils % (manual) 0 (0.0-2.0); Blast Cells 0; Promyelocytes % 0; Reactive Lymphocytes 0
[2022-11-21 07:30] VITALS: BP 115/51
[2022-11-21 08:04] LABS: Band Neutrophils % (manual) 12; Eosinophils % (manual) 1 (0-7); Lymphocytes % (manual) 12 (10.0-50.0); Metamyelocytes % 4; Monocytes % (manual) 15 (0-12); Myelocytes % 1
[2022-11-21] MEDS: rifAXIMin 550 MG TAB PO SCH ×2 (10:31→21:36)
[2022-11-21] MEDS: METOCLOPRAMIDE HCL 10 MG TAB PO SCH ×2 (10:31→21:36)
[2022-11-21] MEDS: Ensure HIGH Protein Chocolate 8oz Bottle PO SCH ×3 (10:32→17:28)
[2022-11-21] MEDS: PANTOPRAZOLE 40 MG/10 ML VIAL INJ IV SCH (10:32)
[2022-11-21] MEDS: FUROSEMIDE 40 MG TAB PO SCH (10:32)
[2022-11-21] MEDS ORDERED: GADOTERATE MEG 7.5 MMOL/15ml INJ (0.5MMOL/ml) IV ONE (14:17)
[2022-11-21 16:17] LABS: Albumin 2.3 g/dL (3.4-5.0); Bilirubin, Direct 2.4 mg/dL (0-0.2)
[2022-11-21 16:21] LABS: Bilirubin, Total 6.2 mg/dL (0.2-1.0); Total Protein 6.9 g/dL (6.4-8.2)
[2022-11-21 22:00] VITALS: BP 123/44
[2022-11-22 01:13] VITALS: BP 122/54
[2022-11-22] MEDS: traMADol HCL 50 MG TAB PO PRN (01:13)
[2022-11-22] MEDS: LACTULOSE 20Gm/30ML SOLN PO SCH ×4 (05:31→21:18)
[2022-11-22 06:07] LABS: Calcium 7.8 mg/dL (8.5-10.1); Potassium 3.5 mmol/L (3.5-5.1)
[2022-11-22 06:09] LABS: BUN/Creatinine Ratio 27.1 (10.0-20.0)
[2022-11-22 07:30] VITALS: BP 101/55
[2022-11-22] MEDS: Ensure HIGH Protein Chocolate 8oz Bottle PO SCH ×3 (08:00→18:00)
[2022-11-22 08:14] LABS: Hematocrit 27.6 % (36.0-46.0); Hemoglobin 9.2 g/dL (12.2-16.2); Mean Corpuscular Hemoglobin 33.8 pg (28.0-32.0); Mean Corpuscular Hgb Conc. 33.6 g/dL (32.0-36.0); Mean Corpuscular Volume 100.7 fL (80.0-100.0); Red Blood Cells 2.74 10^6/uL (4.0-5.20)
[2022-11-22 08:16] LABS: Red Cell Distribution Width 23.5 % (11.8-14.3)
[2022-11-22 08:18] LABS: White Blood Cell 1.9 10^3/uL (4.4-10.8)
[2022-11-22 08:20] LABS: Basophils % (manual) 0 (0.0-2.0); Blast Cells 0; Eosinophils % (manual) 0 (0-7); Promyelocytes % 0; Reactive Lymphocytes 0
[2022-11-22 09:11] LABS: Band Neutrophils % (manual) 8; Lymphocytes % (manual) 19 (10.0-50.0); Metamyelocytes % 6; Monocytes % (manual) 9 (0-12); Myelocytes % 6
[2022-11-22] MEDS: METOCLOPRAMIDE HCL 10 MG TAB PO SCH ×2 (09:38→21:18)
[2022-11-22] MEDS: PANTOPRAZOLE 40 MG/10 ML VIAL INJ IV SCH (09:38)
[2022-11-22] MEDS: rifAXIMin 550 MG TAB PO SCH ×2 (09:38→21:17)
[2022-11-22] MEDS: FUROSEMIDE 40 MG TAB PO SCH (09:40)
[2022-11-22] MEDS ORDERED: FOLIC ACID 1 MG TAB PO ONE (12:15)
[2022-11-22] MEDS ORDERED: THIAMINE HCL 100 MG TAB PO ONE (12:15)
[2022-11-23] MEDS: LACTULOSE 20Gm/30ML SOLN PO SCH ×4 (05:43→21:21)
[2022-11-23 05:58] LABS: Basophils # (auto) 0 10 ^3/uL (0-0.2); Basophils % (auto) 0.4 % (0.0-2.0); Eosinophils # (auto) 0 10 ^3/uL (0-0.8); Eosinophils % (auto) 1.9 % (0.0-7.0); Hematocrit 32.1 % (36.0-46.0); Hemoglobin 10.8 g/dL (12.2-16.2); Lymphocytes # (auto) 0.6 10 ^3/uL (0.4-5.4); Lymphocytes % (auto) 25.9 % (10.0-50.0); Mean Corpuscular Hemoglobin 33.4 pg (28.0-32.0); Mean Corpuscular Hgb Conc. 33.7 g/dL (32.0-36.0); Mean Corpuscular Volume 99.1 fL (80.0-100.0); Monocytes # (auto) 0.4 10 ^3/uL (0-1.3); Monocytes % (auto) 16.3 % (0.0-12.0); Neutrophils # (auto) 1.3 10 ^3/uL (1.6-8.6); Neutrophils % (auto) 55.5 % (37.0-80.0); Nucleated Red Blood Cells % 0.6 %; Red Blood Cells 3.23 10^6/uL (4.0-5.20); White Blood Cell 2.3 10^3/uL (4.4-10.8)
[2022-11-23 06:14] LABS: Albumin 2.7 g/dL (3.4-5.0); Potassium 3.7 mmol/L (3.5-5.1)
[2022-11-23 06:20] LABS: Bilirubin, Total 9.8 mg/dL (0.2-1.0); Calcium 8.6 mg/dL (8.5-10.1); Magnesium 2.2 mg/dL (1.6-2.6); Total Protein 7.9 g/dL (6.4-8.2)
[2022-11-23 06:45] LABS: Red Cell Distribution Width 23.2 % (11.8-14.3)
[2022-11-23] MEDS: Ensure HIGH Protein Chocolate 8oz Bottle PO SCH ×3 (08:35→17:39)
[2022-11-23] MEDS: METOCLOPRAMIDE HCL 10 MG TAB PO SCH ×2 (10:15→21:21)
[2022-11-23] MEDS: THIAMINE HCL 100 MG TAB PO SCH (10:15)
[2022-11-23] MEDS: FOLIC ACID 1 MG TAB PO SCH (10:15)
[2022-11-23] MEDS: rifAXIMin 550 MG TAB PO SCH ×2 (10:15→21:21)
[2022-11-23] MEDS: FUROSEMIDE 40 MG TAB PO SCH (10:16)
[2022-11-23] MEDS: PANTOPRAZOLE 40 MG/10 ML VIAL INJ IV SCH (10:16)
[2022-11-23] MEDS: traMADol HCL 50 MG TAB PO PRN (17:38)
[2022-11-23 22:00] VITALS: BP 122/48
[2022-11-24 05:00] VITALS: BP 116/47
[2022-11-24] MEDS: LACTULOSE 20Gm/30ML SOLN PO SCH ×4 (05:51→22:00)
[2022-11-24 06:13] LABS: Basophils # (auto) 0 10 ^3/uL (0-0.2); Eosinophils # (auto) 0 10 ^3/uL (0-0.8); Hemoglobin 9.8 g/dL (12.2-16.2); Lymphocytes # (auto) 0.5 10 ^3/uL (0.4-5.4); Mean Corpuscular Hemoglobin 34.1 pg (28.0-32.0); Monocytes # (auto) 0.3 10 ^3/uL (0-1.3)
[2022-11-24 06:37] LABS: BUN/Creatinine Ratio 36.4 (10.0-20.0); Basophils % (auto) 0.4 % (0.0-2.0); Calcium 8.4 mg/dL (8.5-10.1); Eosinophils % (auto) 1.9 % (0.0-7.0); Hematocrit 28.6 % (36.0-46.0); Lymphocytes % (auto) 22.9 % (10.0-50.0); Magnesium 2.2 mg/dL (1.6-2.6); Mean Corpuscular Hgb Conc. 34.2 g/dL (32.0-36.0); Mean Corpuscular Volume 99.6 fL (80.0-100.0); Monocytes % (auto) 12.7 % (0.0-12.0); Neutrophils # (auto) 1.5 10 ^3/uL (1.6-8.6); Neutrophils % (auto) 62.1 % (37.0-80.0); Nucleated Red Blood Cells % 0.1 %; Potassium 3.7 mmol/L (3.5-5.1); Red Blood Cells 2.88 10^6/uL (4.0-5.20); Red Cell Distribution Width 23.3 % (11.8-14.3); White Blood Cell 2.3 10^3/uL (4.4-10.8)
[2022-11-24] MEDS: Ensure HIGH Protein Chocolate 8oz Bottle PO SCH ×3 (08:00→18:00)
[2022-11-24] MEDS: FOLIC ACID 1 MG TAB PO SCH (10:31)
[2022-11-24] MEDS: THIAMINE HCL 100 MG TAB PO SCH (10:31)
[2022-11-24] MEDS: PANTOPRAZOLE 40 MG/10 ML VIAL INJ IV SCH (10:31)
[2022-11-24] MEDS: FUROSEMIDE 40 MG TAB PO SCH (10:31)
[2022-11-24] MEDS: rifAXIMin 550 MG TAB PO SCH ×2 (10:32→22:00)
[2022-11-24] MEDS: METOCLOPRAMIDE HCL 10 MG TAB PO SCH ×2 (10:32→22:00)
[2022-11-24] MEDS: LORazepam 2MG/ML-1ML VIAL IV PRN (10:40)
[2022-11-24 17:00] VITALS: BP 107/56
[2022-11-24 20:20] VITALS: BP 108/54
[2022-11-24 22:00] VITALS: BP 108/54
[2022-11-25] MEDS: LORazepam 2MG/ML-1ML VIAL IV PRN (00:48)
[2022-11-25 05:00] VITALS: BP 124/52
[2022-11-25] MEDS: LACTULOSE 20Gm/30ML SOLN PO SCH (06:00)
[2022-11-25 06:07] LABS: Hematocrit 28.7 % (36.0-46.0)
[2022-11-25 06:10] LABS: Hemoglobin 9.6 g/dL (12.2-16.2); Mean Corpuscular Hemoglobin 35.2 pg (28.0-32.0); Mean Corpuscular Hgb Conc. 33.6 g/dL (32.0-36.0); Mean Corpuscular Volume 104.8 fL (80.0-100.0); Red Blood Cells 2.73 10^6/uL (4.0-5.20)
[2022-11-25 06:28] LABS: Red Cell Distribution Width 24.3 % (11.8-14.3)
[2022-11-25 06:29] LABS: White Blood Cell 1.7 10^3/uL (4.4-10.8)
[2022-11-25 06:31] LABS: Basophils % (manual) 0 (0.0-2.0); Blast Cells 0; Promyelocytes % 0; Reactive Lymphocytes 0
[2022-11-25 07:29] LABS: Calcium 8.1 mg/dL (8.5-10.1); Potassium 3.9 mmol/L (3.5-5.1)
[2022-11-25 07:31] LABS: BUN/Creatinine Ratio 34.7 (10.0-20.0)
[2022-11-25] MEDS: Ensure HIGH Protein Chocolate 8oz Bottle PO SCH ×3 (08:00→18:00)
[2022-11-25 08:47] LABS: Band Neutrophils % (manual) 4; Eosinophils % (manual) 1 (0-7); Lymphocytes % (manual) 15 (10.0-50.0); Metamyelocytes % 4; Monocytes % (manual) 2 (0-12); Myelocytes % 1
[2022-11-25 08:56] VITALS: BP 121/44
[2022-11-25] MEDS: FOLIC ACID 1 MG TAB PO SCH (10:00)
[2022-11-25] MEDS: METOCLOPRAMIDE HCL 10 MG TAB PO SCH ×2 (10:00→21:21)
[2022-11-25] MEDS: rifAXIMin 550 MG TAB PO SCH ×2 (10:00→21:20)
[2022-11-25] MEDS: FUROSEMIDE 40 MG TAB PO SCH (10:00)
[2022-11-25] MEDS: PANTOPRAZOLE 40 MG/10 ML VIAL INJ IV SCH (10:58)
[2022-11-25] MEDS: THIAMINE HCL 100 MG TAB PO SCH (11:05)
[2022-11-25 13:00] VITALS: BP 110/45
[2022-11-25 16:13] VITALS: BP 132/53
[2022-11-25] MEDS ORDERED: PPN PER PHARMACY 0 ML IV SCH (16:15)
[2022-11-25 16:43] LABS: Magnesium 2.4 mg/dL (1.6-2.6)
[2022-11-25 16:45] LABS: Phosphorus 3.7 mg/dL (2.5-4.90)
[2022-11-25] MEDS: LACTULOSE 10g/15ml SOLN 473ML PR SCH (18:38)
[2022-11-25] MEDS: AMINO ACID INFUSION IN D10W 1,000 ML IV NR (21:20)
[2022-11-25 22:00] VITALS: BP 112/89
[2022-11-26] MEDS ORDERED: DEXTROSE (50%) 50ML SYRG IV SCH
[2022-11-26] MEDS: ACCU-CHEK COMFORT CURVE STRIP VI SCH ×5 (00:17→23:45)
[2022-11-26] MEDS: LACTULOSE 10g/15ml SOLN 473ML PR SCH ×4 (00:18→18:00)
[2022-11-26 04:42] VITALS: BP 110/79
[2022-11-26] MEDS: InsuLIN REG 1unit/0.01ml Soln (100units/ml) SC SCH ×5 (05:19→23:45)
[2022-11-26] MEDS: Ensure HIGH Protein Chocolate 8oz Bottle PO SCH ×3 (08:00→18:00)
[2022-11-26] MEDS ORDERED: PHYTONADIONE(VIT K) 5 MG TAB PO ONE (08:45)
[2022-11-26] MEDS: THIAMINE HCL 100 MG TAB PO SCH (10:00)
[2022-11-26] MEDS: FOLIC ACID 1 MG TAB PO SCH (10:00)
[2022-11-26] MEDS: rifAXIMin 550 MG TAB PO SCH ×2 (10:00→22:02)
[2022-11-26] MEDS: METOCLOPRAMIDE HCL 10 MG TAB PO SCH ×2 (10:00→22:04)
[2022-11-26] MEDS: PANTOPRAZOLE 40 MG/10 ML VIAL INJ IV SCH (10:03)
[2022-11-26] MEDS: FUROSEMIDE 20 MG/2 ML VIAL IV SCH (10:05)
[2022-11-26] MEDS ORDERED: LORazepam 0.5 MG TAB PO ONE (17:00)
[2022-11-26] MEDS ORDERED: phytonadione 10 MG in SODIUM CHL 0.9% 50 ML IV ONE (18:15)
[2022-11-26 22:00] VITALS: BP 107/43
[2022-11-26] MEDS: AMINO ACID INFUSION IN D10W 1,000 ML IV NR (22:04)
[2022-11-26 22:29] LABS: INR 1.81 (0.9-1.15); Partial Thromboplastin Time 39.3 SEC (24.5-34.5)
[2022-11-26 22:53] LABS: Albumin 2.7 g/dL (3.4-5.0); Calcium 8.6 mg/dL (8.5-10.1); Magnesium 2.1 mg/dL (1.6-2.6); Potassium 3.1 mmol/L (3.5-5.1)
[2022-11-26 22:57] LABS: BUN/Creatinine Ratio 20.3 (10.0-20.0); Bilirubin, Total 9.1 mg/dL (0.2-1.0); Total Protein 7.7 g/dL (6.4-8.2)
[2022-11-27] MEDS ORDERED: POTASSIUM CHL 20MEQ/100ML 100 ML IV ONE (00:30)
[2022-11-27] MEDS: LACTULOSE 10g/15ml SOLN 473ML PR SCH (01:30)
[2022-11-27 05:20] VITALS: BP 108/50
[2022-11-27] MEDS: ACCU-CHEK COMFORT CURVE STRIP VI SCH ×2 (05:39→11:17)
[2022-11-27] MEDS: InsuLIN REG 1unit/0.01ml Soln (100units/ml) SC SCH ×2 (05:39→11:19)
[2022-11-27] MEDS: Ensure HIGH Protein Chocolate 8oz Bottle PO SCH ×3 (08:00→18:00)
[2022-11-27 08:44] LABS: Hematocrit 32.1 % (36.0-46.0); Mean Corpuscular Hgb Conc. 34.1 g/dL (32.0-36.0); Mean Corpuscular Volume 99.5 fL (80.0-100.0); Red Blood Cells 3.23 10^6/uL (4.0-5.20)
[2022-11-27 08:48] LABS: Band Neutrophils % (manual) 0; Basophils % (manual) 0 (0.0-2.0); Blast Cells 0; Eosinophils % (manual) 0 (0-7); Metamyelocytes % 0; Myelocytes % 0; Promyelocytes % 0; Reactive Lymphocytes 0; Red Cell Distribution Width 23.1 % (11.8-14.3)
[2022-11-27] MEDS: PANTOPRAZOLE 40 MG/10 ML VIAL INJ IV SCH (08:54)
[2022-11-27] MEDS: FOLIC ACID 1 MG TAB PO SCH (08:54)
[2022-11-27] MEDS: METOCLOPRAMIDE HCL 10 MG TAB PO SCH ×2 (08:54→21:52)
[2022-11-27] MEDS: THIAMINE HCL 100 MG TAB PO SCH (08:54)
[2022-11-27 09:00] VITALS: BP 111/59
[2022-11-27] MEDS: FUROSEMIDE 20 MG/2 ML VIAL IV SCH (09:03)
[2022-11-27 09:19] LABS: Lymphocytes % (manual) 33 (10.0-50.0); Monocytes % (manual) 18 (0-12)
[2022-11-27 09:33] LABS: Magnesium 2.4 mg/dL (1.6-2.6); Phosphorus 2.7 mg/dL (2.5-4.90)
[2022-11-27 10:41] LABS: Anion Gap 9 (5-15); BUN/Creatinine Ratio 27.1 (10.0-20.0); Blood Urea Nitrogen 13 mg/dL (7-18); Carbon Dioxide 21 mmol/L (21-32); Chloride 102 mmol/L (98-107); GFR African American 173 mL/min; GFR Non-African American 143 mL/min; Glucose 114 mg/dL (74-106); Sodium 132 mmol/L (136-145)
[2022-11-27] MEDS: LORazepam 2MG/ML-1ML VIAL IV PRN ×2 (11:16→19:42)
[2022-11-27] MEDS: rifAXIMin 550 MG TAB PO SCH ×2 (12:03→21:52)
[2022-11-27] MEDS: LACTULOSE 20Gm/30ML SOLN PO SCH ×2 (13:42→21:52)
[2022-11-27 13:50] LABS: INR 1.81 (0.9-1.15); Partial Thromboplastin Time 42.8 SEC (24.5-34.5)
[2022-11-27 17:07] VITALS: BP 126/70
[2022-11-27 19:40] VITALS: BP 110/64
[2022-11-27] MEDS ORDERED: PPN PER PHARMACY IV NR ×9 (20:00)
[2022-11-27 22:00] VITALS: BP 112/63
[2022-11-28 05:00] VITALS: BP 127/76
[2022-11-28] MEDS: LACTULOSE 20Gm/30ML SOLN PO SCH ×2 (06:00→06:20)
[2022-11-28 06:36] LABS: Basophils # (auto) 0 10 ^3/uL (0-0.2); Eosinophils # (auto) 0.1 10 ^3/uL (0-0.8); Hemoglobin 11.3 g/dL (12.2-16.2); Lymphocytes # (auto) 0.5 10 ^3/uL (0.4-5.4); Monocytes # (auto) 0.3 10 ^3/uL (0-1.3); Neutrophils # (auto) 0.7 10 ^3/uL (1.6-8.6)
[2022-11-28 06:38] LABS: Basophils % (auto) 0.6 % (0.0-2.0); Eosinophils % (auto) 3.3 % (0.0-7.0); Hematocrit 32.1 % (36.0-46.0); Lymphocytes % (auto) 32.5 % (10.0-50.0); Mean Corpuscular Hemoglobin 34.9 pg (28.0-32.0); Mean Corpuscular Hgb Conc. 35.1 g/dL (32.0-36.0); Mean Corpuscular Volume 99.4 fL (80.0-100.0); Monocytes % (auto) 17.2 % (0.0-12.0); Neutrophils % (auto) 46.4 % (37.0-80.0); Red Blood Cells 3.23 10^6/uL (4.0-5.20)
[2022-11-28 06:54] LABS: Potassium 3.6 mmol/L (3.5-5.1)
[2022-11-28 07:13] LABS: Albumin 2.6 g/dL (3.4-5.0); BUN/Creatinine Ratio 27.3 (10.0-20.0); Bilirubin, Total 11.7 mg/dL (0.2-1.0); Calcium 8.4 mg/dL (8.5-10.1); Total Protein 7.4 g/dL (6.4-8.2)
[2022-11-28 07:18] LABS: Red Cell Distribution Width 23.1 % (11.8-14.3)
[2022-11-28 07:20] LABS: White Blood Cell 1.6 10^3/uL (4.4-10.8)
[2022-11-28] MEDS: Ensure HIGH Protein Chocolate 8oz Bottle PO SCH (08:00)
[2022-11-28 08:53] VITALS: BP 127/70
[2022-11-28] MEDS ORDERED: FUROSEMIDE 40 MG TAB PO SCH (10:00)
[2022-11-28] MEDS: PANTOPRAZOLE 40 MG/10 ML VIAL INJ IV SCH (10:52)
[2022-11-28] MEDS: rifAXIMin 550 MG TAB PO SCH (10:52)
[2022-11-28] MEDS: METOCLOPRAMIDE HCL 10 MG TAB PO SCH (10:52)
[2022-11-28] MEDS: THIAMINE HCL 100 MG TAB PO SCH (10:52)
[2022-11-28] MEDS: FOLIC ACID 1 MG TAB PO SCH (10:53)
[2022-11-28 13:00] VITALS: BP 115/80
== END 2022-11-28 15:30 | disposition hospice, home (50) | DRG 280 ==
LOC: ER 17:31 → EDBD 17:31 → OVERFLOW 11-19 02:48 → CENTRAL 11-19 17:59 → EAST 11-20 22:25
PROVIDERS: ADMIT Internal Medicine Pulmonary Disease; ATTEND Student in an Organized Health Care Education/Training Program
DX: K76.82 Hepatic encephalopathy (principal); K70.9 Alcoholic liver disease, unspecified; D61.818 Other pancytopenia; E43 Unspecified severe protein-calorie malnutrition; I27.20 Pulmonary hypertension, unspecified; D68.9 Coagulation defect, unspecified; E72.20 Disorder of urea cycle metabolism, unspecified; E87.1 Hypo-osmolality and hyponatremia; D53.9 Nutritional anemia, unspecified; N18.9 Chronic kidney disease, unspecified; N28.1 Cyst of kidney, acquired; N39.0 Urinary tract infection, site not specified; Z59.00 Homelessness unspecified; Z91.199 Patient's noncompliance with other medical treatment and regimen due to unspecified reason; Z91.83 Wandering in diseases classified elsewhere; Z85.05 Personal history of malignant neoplasm of liver; Z68.21 Body mass index [BMI] 21.0-21.9, adult; Z90.49 Acquired absence of other specified parts of digestive tract
CPT/HCPCS: 36415; 36600; 70450; 71045; 71250; 74176; 74181; 76705; 80048; 80053; 80076; 80307; 81001; 82105; 82140; 82805; 82962; 83735; 83880; 84100; 84478; 84484; 85007; 85025; 85027; 85610; 85730; 86304; 87081; 87086; 93005; 96374; 96375; C9113; G0378; J1815; J2405; J3430; J3480; J7131